=== PATIENT | male | born 1930 | race Caucasian/White ===

== ENCOUNTER 2016-09-20 02:47 | Emergency (ER) | payer MEDICARE ==
[2016-09-20 02:57] VITALS: O2SAT 100
--- NOTE | 2016-09-20 03:00 | ERPHSYRPT ---
- History of Present Illness Time Seen by Provider: 09/20/16 02:53 Source: patient, family Exam Limitations: no limitations Physician History: came to ER with c/o nose bleed for 1 hour. Nose bleed is already stopped when patient arrives in ER. some blood clots in left nostril. patient is taking elliquis for his atrial fibrillation and CHF Timing/Duration: abrupt onset ENT Location: nose (bleed) Prearrival Treatment: no prearrival treatment Associated Symptoms: denies symptoms Allergies/Adverse Reactions: No Known Drug Allergies Allergy (Verified 05/31/15 17:09) Home Medications: Allopurinol 100 mg [Zyloprim 100 mg] 150 mg PO DAILY 06/07/14 [History] Cholecalciferol (Vitamin D3) [Maximum D3] 1 cap PO WEEKLY 06/07/14 [History] Levothyroxine Sodium 75 Mcg [Synthroid 75 Mcg] 75 mcg PO DAILY 06/07/14 [ History] Furosemide 40 mg PO BID 05/31/15 [History] Tamsulosin HCl 0.4 mg [Flomax 0.4 MG] 0.4 mg PO DAILY 05/31/15 [History] Apixaban [Eliquis] 5 mg PO BID 02/10/16 [History] Carvedilol 12.5 mg [Coreg 12.5 mg] 12.5 mg PO BID 02/10/16 [History] Hx Tetanus, Diphtheria Vaccination/Date Given: No Hx Influenza Vaccination/Date Given: Yes Hx Pneumococcal Vaccination/Date Given: No - Review of Systems Constitutional: No Symptoms Eyes: No Symptoms Ears, Nose, & Throat: Epistaxis Respiratory: No Symptoms Cardiac: No Symptoms Abdominal/Gastrointestinal: No Symptoms Genitourinary Symptoms: No Symptoms Musculoskeletal: No Symptoms Skin: No Symptoms - Past Medical History Pertinent Past Medical History: Yes Neurological History: No Pertinent History ENT History: No Pertinent History Cardiac History: Angina, Arrhythmia, Hypertension Respiratory History: CHF, COPD Endocrine Medical History: No Pertinent History Musculoskeletal History: Fractures GI Medical History: No Pertinent History History: Renal Disease Psycho-Social History: No Pertinent History Male Reproductive Disorders: Prostate Problems Other Medical History: fractured left arm, fractured fingers - Past Surgical History Past Surgical History: Yes Neuro Surgical History: No Pertinent History Cardiac: Pacemaker Respiratory: No Pertinent History Gastrointestinal: No Pertinent History Genitourinary: No Pertinent History Musculoskeletal: Orthopedic Surgery Male Surgical History: No Pertinent History Other Surgical History: [place] teeth out, surgery on hand - Social History Smoking Status: Former smoker Exposure to second hand smoke: No Drug Use: none Patient Lives Alone: Yes - Physical Exam General Appearance: no apparent distress Eye Exam: bilateral eye: normal inspection Ear Exam: bilateral ear: auricle normal Nasal Exam: dried blood (left nostril), No active bleeding Throat Exam: normal, pharynx normal Neck Exam: normal inspection Cardiovascular/Respiratory Exam: chest non-tender, normal breath sounds Abdominal Exam: non-tender Neurologic Exam: alert, oriented x 3, cooperative - Course Nursing assessment & vital signs reviewed: Yes - Progress Progress: improved Counseled pt/family regarding: diagnosis, need for follow-up - Departure Time of Disposition: 02:57 Departure Disposition: Home Clinical Impression: Anterior epistaxis Condition: Stable Critical Care Time: No Referrals: CRISTINA VALVERDE MD [Primary Care Provider] - Instructions: Nosebleed Additional Instructions: Donot take morning dose of ellequis , continue rest of the medicines. start elliquis toinght dose. if nose bleed recurs then hold another dose of elliquis too. if bleeding still recur then come back to ER for nasal packing. add water tower for his oxygen.
[2016-09-20 03:42] VITALS: BP 107/68; PULSE 76
== END 2016-09-20 03:43 | disposition home or self-care (01) ==
LOC: ED 02:47
DX: R04.0 Epistaxis (principal); I50.9 Heart failure, unspecified; I48.2 Chronic atrial fibrillation; J44.9 Chronic obstructive pulmonary disease, unspecified; Z79.01 Long term (current) use of anticoagulants
CPT/HCPCS: 99282

== ENCOUNTER 2017-03-07 23:38 | Inpatient (IN) | payer MEDICARE ==
[2017-03-07] MEDS ORDERED: Sodium Chloride 0.9% 1000 ML 1,000 ML IV SCH (23:45)
[2017-03-08 00:01] LABS: Mean Cell Volume 87.5 fl (78-100); Mean Corpuscular Hemoglobin 27.3 pg (26-32); Mean Platelet Volume 10.9 fl (6-9.5); Platelet Count 246 K/mm3 (150-450); Red Blood Count 4.79 M/mm3 (4.1-5.6); Red Cell Distribution Width 19.4 % (11.5-14.0); White Blood Count 10.4 K/mm3 (4.0-10.5)
--- NOTE | 2017-03-08 00:11 | ERPHSYRPT ---
- History of Present Illness Time Seen by Provider: 03/07/17 23:38 Source: patient, family (DAUGHTER) Exam Limitations: no limitations Patient Subjective Stated Complaint: "I was going to the bathroom and fell. i don't think i hit my head, but i passed out. that's why i fell. my right knee is hurting" Triage Nursing Assessment: aox3, breathing unlabored, skin pink warm dry, assist of 1 needed from wc to bed Physician History: ABOUT 20 MINUTES AGO PT FELL IN HIS BEDROOM AFTER A 2 SECOND LOSS OF CONSCIOUSNESS WITH RESULTANT BITEMPORAL HEADACHE AND RIGHT KNEE PAIN. PT HAS HAD LIGHTHEADEDNESS, DIZZINESS AND LEFT LEG WEAKNESS FOR THE PAST WEEK. PT HAS HAD BILATERAL FOOT EDEMA AND HAS BEEN ON HOME OXYGEN FOR YEARS. Allergies/Adverse Reactions: No Known Drug Allergies Allergy (Verified 05/31/15 17:09) Home Medications: Allopurinol 100 mg [Zyloprim 100 mg] 150 mg PO DAILY 06/07/14 [History] Cholecalciferol (Vitamin D3) [Maximum D3] 1 cap PO WEEKLY 06/07/14 [History] Levothyroxine Sodium 75 Mcg [Synthroid 75 Mcg] 75 mcg PO DAILY 06/07/14 [ History] Furosemide 40 mg PO BID 05/31/15 [History] Tamsulosin HCl 0.4 mg [Flomax 0.4 MG] 0.4 mg PO DAILY 05/31/15 [History] Apixaban [Eliquis] 5 mg PO BID 02/10/16 [History] Carvedilol 12.5 mg [Coreg 12.5 mg] 12.5 mg PO BID 02/10/16 [History] Hx Tetanus, Diphtheria Vaccination/Date Given: Yes Hx Influenza Vaccination/Date Given: Yes Hx Pneumococcal Vaccination/Date Given: No - Review of Systems Constitutional: No Fever Respiratory: Dyspnea (CHRONIC) Cardiac: No Chest Pain Abdominal/Gastrointestinal: No Abdominal Pain, No Vomiting Musculoskeletal: Joint Pain (RIGHT KNEE PAIN), Other (FEET EDEMA) Neurological: Dizziness, Focal Weakness (LEFT LEG WEAKNESS FOR 1 WEEK), Headache , Other (LOC) All Other Systems: Reviewed and Negative - Past Medical History Pertinent Past Medical History: Yes Neurological History: No Pertinent History ENT History: No Pertinent History Cardiac History: Angina, Arrhythmia, Hypertension, Other Respiratory History: CHF, COPD Endocrine Medical History: No Pertinent History Musculoskeletal History: Fractures GI Medical History: No Pertinent History History: Renal Disease Psycho-Social History: No Pertinent History Male Reproductive Disorders: Prostate Problems Other Medical History: fractured left arm, fractured fingers ppm 06/2015 for atrial fib leaky valve - Past Surgical History Past Surgical History: Yes Neuro Surgical History: No Pertinent History Cardiac: Pacemaker Respiratory: No Pertinent History Gastrointestinal: No Pertinent History Genitourinary: No Pertinent History Musculoskeletal: Orthopedic Surgery Male Surgical History: No Pertinent History Other Surgical History: [place] teeth out, surgery on hand - Social History Smoking Status: Former smoker Exposure to second hand smoke: No Drug Use: none Patient Lives Alone: Yes - Nursing Vital Signs Nursing Vital Signs: Initial Vital Signs Temperature 97.3 F 03/07/17 23:48 Pulse Rate 86 03/07/17 23:48 Respiratory Rate 22 03/07/17 23:48 Blood Pressure 143/65 03/07/17 23:48 O2 Sat by Pulse Oximetry 96 03/07/17 23:48 Pain Scale Pain Intensity 2 - Physical Exam General Appearance: alert Eye Exam: eyes nml inspection Ears, Nose, Throat Exam: pharynx normal, moist mucous membranes Neck Exam: normal inspection Respiratory Exam: lungs clear Cardiovascular Exam: normal heart sounds Gastrointestinal/Abdomen Exam: soft, normal bowel sounds Back Exam: normal range of motion Extremity Exam: pedal edema (+1 BILATERALLY) Neurologic Exam: alert, cooperative Skin Exam: warm, dry SpO2 Interpretation: normal SpO2: 96 Oxygen Delivery: Nasal Cannula - Course Nursing assessment & vital signs reviewed: Yes EKG Interpreted by Me: RATE (65), NORMAL AXIS, Non-specific ST Changes, Other ( PACEMAKER EKG) - Radiology Exams Chest X-ray Interpretation: Interpreted by me (CM) - CT Exams Head CT Interpretation: Tele-radiologist Report (NO ACUTE INTRACRANIAL FINDINGS.) Ordered Tests: Active Orders 24 hr Category Date Time Status EKG-ER Only STAT Care 03/07/17 23:52 Active IV Insertion STAT Care 03/07/17 23:52 Active Oxygen-ED Only NASAL CANNULA 3 lpm Care 03/07/17 23:52 Active Pulse Oximetry (ED) STAT Care 03/07/17 23:52 Active CHEST 1 VIEW (PORTABLE) Stat Exams 03/07/17 23:51 Taken HEAD WITHOUT CONTRAST [CT] Stat Exams 03/07/17 23:52 Taken AMYLASE Stat Lab 03/07/17 23:55 Completed CBC W DIFF Stat Lab 03/07/17 23:55 Completed CMP Stat Lab 03/07/17 23:55 Completed LIPASE Stat Lab 03/07/17 23:55 Completed MAGNESIUM Stat Lab 03/07/17 23:55 Completed Manual Differential NC Stat Lab 03/07/17 23:55 Completed NT PRO BNP Stat Lab 03/07/17 23:55 Completed TROPONIN Q3H Lab 03/07/17 23:55 Completed TROPONIN Q3H Lab 03/08/17 02:51 Ordered TROPONIN Q3H Lab 03/08/17 05:51 Ordered TROPONIN Q3H Lab 03/08/17 08:51 Ordered TROPONIN Q3H Lab 03/08/17 11:51 Ordered UA W/RFX UR CULTURE Stat Lab 03/07/17 23:51 Completed Urine Triage Profile Stat Lab 03/07/17 23:51 Completed Transfer Order Routine Transfer 03/08/17 Ordered Medication Summary Generic Name Dose Route Start Last Admin Trade Name Dominga PRN Reason Stop Dose Admin Sodium Chloride 1,000 mls @ 100 mls/hr 03/07/17 23:45 03/08/17 00:28 Sodium Chloride 0.9% 1000 Ml IV 04/06/17 23:44 100 mls/hr .Q10H KHUSHBU Administration Lab/Rad Data: Laboratory Result Diagrams 03/07/17 23:55 03/07/17 23:55 Laboratory Results 03/08/17 03/08/17 03/07/17 Range/Units 01:20 01:20 23:55 WBC (4.0-10.5) K/mm3 RBC (4.1-5.6) M/mm3 Hgb (12.5-18.0) gm/dl Hct (42-50) % MCV (78-100) fl MCH (26-32) pg MCHC (32-36) g/dl RDW (11.5-14.0) % Plt Count (150-450) K/mm3 MPV (6-9.5) fl Segmented Neutrophils (36.-66.) % Lymphocytes (Manual) (24-44) % Monocytes (Manual) (0.0-12.0) % Eosinophils (Manual) (0.00-3.0) % Differential Comment Platelet Estimate (NORMAL) Sodium (136-145) mEq/L Potassium (3.5-5.1) mEq/L Chloride (98-107) mEq/L Carbon Dioxide (21-32) mEq/L Anion Gap (5-15) MEQ/L BUN (9-20) mg/dL Creatinine (0.55-1.30) mg/dl Estimated GFR ML/MIN Glucose (70-110) MG/DL Calcium (8.5-10.1) mg/dL Magnesium (1.8-2.4) mg/dL Total Bilirubin (0.2-1.0) mg/dL AST (15-37) U/L ALT (12-78) U/L Alkaline Phosphatase (46-116) U/L Troponin I < 0.017 (0.000-0.056) ng/ml NT-Pro-B Natriuret Pep (0-450) pg/ml Serum Total Protein (6.4-8.2) gm/dL Albumin (3.4-5.0) g/dL Amylase (25-115) U/L Lipase (73-393) U/L Ur Collection Type CLEAN CATCH Urine Color YELLOW (YELLOW) Urine Appearance CLEAR (CLEAR) Urine pH 5.0 (5-6) Ur Specific [place] 1.015 (1.005-1.025) Urine Protein NEGATIVE (Negative) Urine Ketones NEGATIVE (NEGATIVE) Urine Blood NEGATIVE (0-5) Rikki/ul Urine Nitrite NEGATIVE (NEGATIVE) Urine Bilirubin NEGATIVE (NEGATIVE) Urine Urobilinogen 1 (0-1) mg/dL Ur Leukocyte Esterase NEGATIVE (NEGATIVE) Urine Glucose NEGATIVE (NEGATIVE) mg/dL Urine Opiates Level NEG. (NEGATIVE) Ur Methadone NEG. (NEGATIVE) Urine Barbiturates NEG. (NEGATIVE) Ur Phencyclidine (PCP) NEG. (NEGATIVE) Urine Amphetamine NEG. (NEGATIVE) U Benzodiazepine Level NEG. (NEGATIVE) Urine Cocaine NEG. (NEGATIVE) Urine Marijuana (THC) NEG. (NEGATIVE) Specimen Received 03/08/17:0120 03/07/17 03/07/17 Range/Units 23:55 23:55 WBC 10.4 (4.0-10.5) K/mm3 RBC 4.79 (4.1-5.6) M/mm3 Hgb 13.1 (12.5-18.0) gm/dl Hct 41.9 L (42-50) % MCV 87.5 (78-100) fl MCH 27.3 (26-32) pg MCHC 31.3 L (32-36) g/dl RDW 19.4 H (11.5-14.0) % Plt Count 246 (150-450) K/mm3 MPV 10.9 H (6-9.5) fl Segmented Neutrophils 80 H (36.-66.) % Lymphocytes (Manual) 13 L (24-44) % Monocytes (Manual) 6 (0.0-12.0) % Eosinophils (Manual) 1 (0.00-3.0) % Differential Comment NORMAL Platelet Estimate NORMAL (NORMAL) Sodium 143 (136-145) mEq/L Potassium 4.6 (3.5-5.1) mEq/L Chloride 105 (98-107) mEq/L Carbon Dioxide 26.9 (21-32) mEq/L Anion Gap 16.0 H (5-15) MEQ/L BUN 38 H (9-20) mg/dL Creatinine 2.16 H (0.55-1.30) mg/dl Estimated GFR 31 ML/MIN Glucose 155 H (70-110) MG/DL Calcium 9.4 (8.5-10.1) mg/dL Magnesium 2.2 (1.8-2.4) mg/dL Total Bilirubin 0.60 (0.2-1.0) mg/dL AST 16 (15-37) U/L ALT 13 (12-78) U/L Alkaline Phosphatase 131 H (46-116) U/L Troponin I (0.000-0.056) ng/ml NT-Pro-B Natriuret Pep 5406 H (0-450) pg/ml Serum Total Protein 7.2 (6.4-8.2) gm/dL Albumin 3.3 L (3.4-5.0) g/dL Amylase 60 (25-115) U/L Lipase 199 (73-393) U/L Ur Collection Type Urine Color (YELLOW) Urine Appearance (CLEAR) Urine pH (5-6) Ur Specific [place] (1.005-1.025) Urine Protein (Negative) Urine Ketones (NEGATIVE) Urine Blood (0-5) Rikki/ul Urine Nitrite (NEGATIVE) Urine Bilirubin (NEGATIVE) Urine Urobilinogen (0-1) mg/dL Ur Leukocyte Esterase (NEGATIVE) Urine Glucose (NEGATIVE) mg/dL Urine Opiates Level (NEGATIVE) Ur Methadone (NEGATIVE) Urine Barbiturates (NEGATIVE) Ur Phencyclidine (PCP) (NEGATIVE) Urine Amphetamine (NEGATIVE) U Benzodiazepine Level (NEGATIVE) Urine Cocaine (NEGATIVE) Urine Marijuana (THC) (NEGATIVE) Specimen Received - Progress Discussed with : Chan (OBS - [id number]) - Departure Time of Disposition: 01:40 Departure Disposition: Observation Clinical Impression: SYNCOPE, RIGHT KNEE CONTUSION, CKD, HTN, COPD, ARRHYTHMIA, CHF Condition: Stable Critical Care Time: No Referrals: CRISTINA VALVERDE MD [Primary Care Provider] -
[2017-03-08] MEDS ORDERED: Sodium Chloride 0.9% 1000 ML 1,000 ML ONE (00:16)
[2017-03-08 00:30] LABS: ALBUMIN 3.3 g/dL (3.4-5.0); BILIRUBIN,TOTAL 0.6 mg/dL (0.2-1.0); Carbon Dioxide 26.9 mEq/L (21-32); MAGNESIUM 2.2 mg/dL (1.8-2.4); Potassium 4.6 mEq/L (3.5-5.1); Total Protein 7.2 gm/dL (6.4-8.2)
[2017-03-08 01:11] LABS: Eosinophil 1 % (0.00-3.0); Platelet Estimate NORMAL (NORMAL); Total Cells Counted 100
[2017-03-08 01:26] LABS: ADD URINE CULTURE? NO (NO); Bilirubin NEGATIVE (NEGATIVE); Blood NEGATIVE Ery/ul (0-5); COMPLETE URINE MICROSCOPIC? NO; Collection Type CLEAN CATCH; Glucose NEGATIVE (NEGATIVE); Leukocyte Esterase NEGATIVE (NEGATIVE)
[2017-03-08] MEDS ORDERED: Phenergan 25 MG INJ IV PRN (02:09)
[2017-03-08] MEDS ORDERED: Sodium Chloride 0.9% 1000 ML 1,000 ML IV SCH (02:09)
[2017-03-08] MEDS ORDERED: TYLENOL 325 MG PO PRN (02:09)
[2017-03-08] MEDS: DUONEB 0.5-3 MG/3 ml Neb IH SCH ×5 (02:51→18:45)
[2017-03-08 05:45] LABS: BASOPHIL % 0.2 % (0.0-0.4); Eosinophil % 0.5 % (0.00-5.0); Granulocytes % 80.1 % (36.0-66.0); Lymphocytes % 13.1 % (24.0-44.0); Mean Cell Volume 87.1 fl (78-100); Mean Corpuscular Hemoglobin 27.4 pg (26-32); Mean Platelet Volume 11.2 fl (6-9.5); Monocytes % 6.1 % (0.0-12.0); Platelet Count 226 K/mm3 (150-450); Red Blood Count 4.57 M/mm3 (4.1-5.6); White Blood Count 9.3 K/mm3 (4.0-10.5)
[2017-03-08 06:10] LABS: ALBUMIN 3.1 g/dL (3.4-5.0); ALKALINE PHOSPHATASE 116 U/L (46-116); ANION GAP 12.1 MEQ/L (5-15); BLOOD UREA NITROGEN 35 mg/dL (9-20); CHLORIDE 107 mEq/L (98-107); Carbon Dioxide 27.6 mEq/L (21-32); Glucose 136 MG/DL (70-110); Potassium 3.9 mEq/L (3.5-5.1); SGOT/AST 22 U/L (15-37); SGPT/ALT 11 U/L (12-78); SODIUM 143 mEq/L (136-145); Total Protein 6.8 gm/dL (6.4-8.2)
[2017-03-08 06:16] LABS: TROPONIN < 0.017 ng/ml (0.000-0.056)
--- NOTE | 2017-03-08 07:41 | PCM.HP ---
History of Present Illness - Chief Complaint Chief Complaint: Patient fell at home, c/o dizziness History of Present Illness: is a 86 year old male. - Review of Systems Constitutional: No Fever, No Chills Eyes: No Symptoms Ears, Nose, & Throat: No Symptoms Respiratory: No Cough, No Short Of Breath Cardiac: No Chest Pain, No Edema, No Syncope Abdominal/Gastrointestinal: No Abdominal Pain, No Nausea, No Vomiting, No Diarrhea Genitourinary Symptoms: No Dysuria Musculoskeletal: No Back Pain, No Neck Pain Skin: No Rash Neurological: No Dizziness, No Focal Weakness, No Sensory Changes Psychological: No Symptoms Endocrine: No Symptoms Hematologic/Lymphatic: No Symptoms Immunological/Allergic: No Symptoms Medications & Allergies Home Medications: Home Medication List Allopurinol 100 mg [Zyloprim 100 mg] 150 mg PO DAILY 06/07/14 [History Confirmed 03/08/17] Cholecalciferol (Vitamin D3) [Maximum D3] 1 cap PO WEEKLY 06/07/14 [History Confirmed 03/08/17] Levothyroxine Sodium 75 Mcg [Synthroid 75 Mcg] 75 mcg PO DAILY 06/07/14 [ History Confirmed 03/08/17] Furosemide 40 mg PO BID 05/31/15 [History Confirmed 03/08/17] Tamsulosin HCl 0.4 mg [Flomax 0.4 MG] 0.4 mg PO DAILY 05/31/15 [History Confirmed 03/08/17] Carvedilol 12.5 mg [Coreg 12.5 mg] 12.5 mg PO BID 02/10/16 [History Confirmed 03/08/17] Aspirin [Aspir-Low] 81 mg PO DAILY 03/08/17 [History Confirmed 03/08/17] Allergies/Adverse Reactions: Allergies Allergy/AdvReac Type Severity Reaction Status Date / Time No Known Drug Allergies Allergy Verified 05/31/15 17:09 - Past Medical History Past Medical History: Yes Neurological History: No Pertinent History ENT History: No Pertinent History Cardiac History: Angina, Arrhythmia, Hypertension, Other Respiratory History: CHF, COPD Endocrine Medical History: Hypothyroidism Musculoskelatal History: Arthritis, Fractures GI Medical History: No Pertinent History History: Renal Disease Pyscho-Social History: No Pertinent History Male Reproductive Disorders: Prostate Problems Comment: fractured left arm, fractured fingers ppm 06/2015 for atrial fib leaky valve - Past Surgical History Past Surgical History: Yes Neuro Surgical History: No Pertinent History Cardiac History: Pacemaker, Other Respiratory Surgery: No Pertinent History GI Surgical History: No Pertinent History Genitourinary Surgical Hx: No Pertinent History Musculskeletal Surgical Hx: Orthopedic Surgery Male Surgical History: No Pertinent History Other Surgical History: [place] teeth out, surgery on hand - Social History Smoking Status: Former smoker Exposure to second hand smoke: No Alcohol: None Drug Use: none - Physical Exam Vital Signs: Vital Signs - 24 hr Temp Pulse Resp BP BP Pulse Ox 03/08/17 07:23 97.8 F 82 20 152/66 94 L 03/08/17 07:15 64 18 95 03/08/17 04:00 98 F 74 18 160/65 93 L 03/08/17 02:52 68 22 97 03/08/17 02:43 98.2 F 71 24 154/79 93 L 03/08/17 02:20 91 L 03/08/17 01:40 96 03/08/17 01:31 69 24 126/64 95 03/08/17 00:33 79 24 169/91 95 03/07/17 23:54 96 03/07/17 23:48 97.3 F 86 22 143/65 96 Oxygen-Last 24 hours O2 Percentage 3 Liters = 32% O2 Percentage 3 Liters = 32% O2 Percentage 3 Liters = 32% O2 Percentage 3 Liters = 32% O2 Percentage 3 Liters = 32% O2 Percentage 2 Liters = 28% O2 Percentage 2 Liters = 28% General Appearance: no apparent distress, alert Neurologic Exam: alert, oriented x 3, cooperative, normal mood/affect, nml cerebellar function, nml station & gait, sensation nml, No motor deficits Eye Exam: PERRL/EOMI, eyes nml inspection Ears, Nose, Throat Exam: normal ENT inspection, TMs normal, pharynx normal, moist mucous membranes Neck Exam: normal inspection, non-tender, supple, full range of motion Respiratory Exam: normal breath sounds, lungs clear, No respiratory distress Cardiovascular Exam: regular rate/rhythm, normal heart sounds, normal peripheral pulses Gastrointestinal/Abdomen Exam: soft, normal bowel sounds, No tenderness, No mass Back Exam: normal inspection, normal range of motion, No CVA tenderness, No vertebral tenderness Extremity Exam: normal inspection, normal range of motion, pelvis stable Skin Exam: normal color, warm, dry, No rash Lymphatic Exam: No adenopathy Results - Labs Lab/Micro Results: Lab Results-Last 24 Hours 03/08/17 03/08/17 03/08/17 Range/Units 03:10 05:17 05:17 WBC 9.3 (4.0-10.5) K/mm3 RBC 4.57 (4.1-5.6) M/mm3 Hgb 12.5 (12.5-18.0) gm/dl Hct 39.8 L (42-50) % MCV 87.1 (78-100) fl MCH 27.4 (26-32) pg MCHC 31.4 L (32-36) g/dl RDW 19.0 H (11.5-14.0) % Plt Count 226 (150-450) K/mm3 MPV 11.2 H (6-9.5) fl Gran % 80.1 H (36.0-66.0) % Lymphocytes % 13.1 L (24.0-44.0) % Monocytes % 6.1 (0.0-12.0) % Eosinophils % 0.5 (0.00-5.0) % Basophils % 0.2 (0.0-0.4) % Basophils # 0.02 (0-0.4) Sodium 143 (136-145) mEq/L Potassium 3.9 (3.5-5.1) mEq/L Chloride 107 (98-107) mEq/L Carbon Dioxide 27.6 (21-32) mEq/L Anion Gap 12.1 (5-15) MEQ/L BUN 35 H (9-20) mg/dL Creatinine 1.98 H (0.55-1.30) mg/dl Estimated GFR 34 ML/MIN Glucose 136 H (70-110) MG/DL Calcium 9.3 (8.5-10.1) mg/dL Total Bilirubin 0.70 (0.2-1.0) mg/dL AST 22 (15-37) U/L ALT 11 L (12-78) U/L Alkaline Phosphatase 116 (46-116) U/L Troponin I < 0.017 < 0.017 (0.000-0.056) ng/ml Serum Total Protein 6.8 (6.4-8.2) gm/dL Albumin 3.1 L (3.4-5.0) g/dL - Other Procedures and Tests Respiratory Therapy 03/08/17 03:15 Respiratory Nebulizer Q4H Assessment/Plan (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
[2017-03-08] MEDS ORDERED: CHOLECALCIFEROL PO SCH (08:30)
[2017-03-08] MEDS: COREG 12.5 MG PO SCH ×2 (09:29→21:42)
[2017-03-08] MEDS: ECOTRIN 81 MG PO SCH (09:29)
[2017-03-08] MEDS: Flomax 0.4 MG PO SCH (09:29)
[2017-03-08] MEDS: SYNTHROID 75 MCG PO SCH (09:30)
[2017-03-08] MEDS: Lasix 40 MG PO SCH ×2 (09:30→16:46)
[2017-03-08] MEDS: ZYLOPRIM 300 MG PO SCH (09:32)
--- NOTE | 2017-03-08 09:53 | XRAY ---
Indication: Syncopal episode. Headache. Comparison: February 10, 2016. Portable apical lordotic chest underinflated today again with cardiomegaly and left-sided single lead pacemaker. There is now right base subsegmental atelectasis. Remaining lungs clear. Bony thorax intact again with osteopenia and degenerative changes. Impression: Stable cardiomegaly. Right base atelectasis.
--- NOTE | 2017-03-08 09:57 | XRAY ---
Indication: Syncopal episode. Headache. History of hypertension, arrhythmia, and renal disease. Multiple contiguous axial images obtained through the head without contrast. Comparison: March 19, 2007. Again age-appropriate global atrophy, minimal periventricular degenerative micro-ischemia, and remote left caudate head lacunar infarct. No acute intracranial hemorrhage, abnormal extra-axial fluid collection, or mass effect. Fourth ventricle is midline without hydrocephalus. Bony calvarium intact. Again there is chronic opacification of the right mastoid air cells. Remaining visualized paranasal sinuses are clear. Impression: Stable nonacute senile brain with remote left caudate head lacunar infarct. Stable right mastoid air cells opacification presumed inflammatory. Comment: Preliminary interpretation was made by [facility]. Right mastoid air cell opacification not reported and critical. CTDI 68.65
[2017-03-08] MEDS ORDERED: VITAMIN D PO SCH (10:00)
[2017-03-09] MEDS: DUONEB 0.5-3 MG/3 ml Neb IH SCH ×2 (01:10→04:14)
[2017-03-09] MEDS: COREG 12.5 MG PO SCH ×2 (10:05→21:12)
[2017-03-09] MEDS: ECOTRIN 81 MG PO SCH (10:06)
[2017-03-09] MEDS: Flomax 0.4 MG PO SCH (10:06)
[2017-03-09] MEDS: Lasix 40 MG PO SCH (10:06)
[2017-03-09] MEDS: ZYLOPRIM 300 MG PO SCH (10:06)
[2017-03-09] MEDS: SYNTHROID 75 MCG PO SCH (10:06)
--- NOTE | 2017-03-09 12:30 | PCM.NOTE ---
Date and Time: 03/09/17 1230 Subjective Assessment: doing better - Review of Systems Constitutional: No Fever, No Chills Eyes: No Symptoms Ears, Nose, & Throat: No Symptoms Respiratory: No Cough, No Short Of Breath Cardiac: No Chest Pain, No Edema, No Syncope Abdominal/Gastrointestinal: No Abdominal Pain, No Nausea, No Vomiting, No Diarrhea Genitourinary Symptoms: No Dysuria Musculoskeletal: No Back Pain, No Neck Pain Skin: No Rash Neurological: No Dizziness, No Focal Weakness, No Sensory Changes Psychological: No Symptoms Endocrine: No Symptoms Hematologic/Lymphatic: No Symptoms Immunological/Allergic: No Symptoms Objective Exam General Appearance: no apparent distress, alert Neurologic Exam: alert, oriented x 3, cooperative, normal mood/affect, nml cerebellar function, sensation nml, No motor deficits Skin Exam: normal color, warm, dry Eye Exam: PERRL, EOMI, eyes nml inspection Ears, Nose, Throat Exam: normal ENT inspection, pharynx normal, moist mucous membranes Neck Exam: normal inspection, non-tender, supple, full range of motion Respiratory Exam: normal breath sounds, lungs clear, No respiratory distress Cardiovascular Exam: regular rate/rhythm, normal heart sounds Gastrointestinal/Abdomen Exam: soft, No tenderness, No mass Extremity Exam: normal inspection, normal range of motion Back Exam: normal inspection, normal range of motion, No CVA tenderness, No vertebral tenderness Male Genitalia Exam: deferred Rectal Exam: deferred OBJECTIVE DATA Vital Signs: Vital Signs - 24 hr Temp Pulse Resp BP Pulse Ox 03/09/17 11:00 98.3 F 83 20 163/76 95 03/09/17 07:34 97.6 F 75 18 140/68 96 03/09/17 05:02 98.2 F 75 18 131/60 96 03/09/17 04:20 71 19 97 03/09/17 04:12 66 17 96 03/09/17 04:00 18 03/09/17 00:00 98.4 F 75 28 H 140/65 92 L 03/08/17 20:15 98.3 F 71 24 179/76 95 03/08/17 20:00 24 03/08/17 18:49 75 25 H 98 03/08/17 17:02 97.8 F 90 22 95 03/08/17 16:00 18 03/08/17 15:00 63 18 96 03/08/17 13:02 97.6 F 94 H 20 142/80 97 Oxygen-Last 24 hours O2 Percentage 5 Liters = 40% O2 Percentage 5 Liters = 40% O2 Percentage 5 Liters = 40% O2 Percentage 5 Liters = 40% O2 Percentage 4 Liters = 36% O2 Percentage 4 Liters = 36% O2 Percentage 3 Liters = 32% O2 Percentage 3 Liters = 32% Pain Assessment - Last Documented Pain Intensity 0 Pain Scale Used 0-10 Pain Scale Intake and Output: Intake & Output 03/07/17 03/08/17 03/09/17 03/10/17 11:59 11:59 11:59 11:59 Intake Total 876 1682 Output Total 150 1000 Balance 726 682 Weight 93.304 kg 95.028 kg Lab Results: Lab Results-Last 24 Hours 03/08/17 Range/Units 12:27 Troponin I < 0.017 (0.000-0.056) ng/ml Radiology Exams: Radiology Procedures Category Date Time Status ECHO W/2D AND DOPPLER [US] Routine Exams 03/09/17 08:00 Taken Multi-Disciplinary Progress Notes: Multi-Disciplinary Progress Notes 03/09/17 09:52 Case Management Note by Roxy Delarosa PAPERS DISCUSSED WITH PT, SIGNED AND COPY TO PATIENT AND COPY TO CHART. Initialized on 03/09/17 09:52 - END OF NOTE 03/08/17 16:07 Case Management Note by Roxy Delarosa DAUGHTER AND LAY CAREGIVER, MELINA RETURNED CALL. SHE STATES THAT SHE LIVES 2 DO[address] FROM HER FATHER, EVEN THOUGH HE DOES LIVE BY HIMSELF, AND SHE CHECKS ON HIM DAILY. SHE FEELS THAT IT WOULD BE BENEFICIAL TO HER FATHER IF HE WERE TO HAVE PT AND HHC, WITH AIDS COMING IN AT LEAST THREE TIMES A WEEK TO HELP WITH BATHING AND DRESSING. SHE STATES THAT SHE WORKS AT [employer], CAN BE REACHED THERE TOMORROW DURING THE DAYS OR HER CELL PHONE AND THAT IF HE IS DISCHARGED TOMORROW IT WOULD BE AFTER 1600 WHEN SHE COULD PICK HIM UP. SHE IS HAPPY TO HAVE [facility] FOR HER FATHER'S CARE AT HOME. WILL CONTINUE TO MONITOR FOR ALL D /C NEEDS. Initialized on 03/08/17 16:07 - END OF NOTE Assessment/Plan (1) Hypertensive heart and chronic kidney disease with heart failure Current Visit: Yes Status: Chronic Code(s): I13.0 - HYP HRT & CHR KDNY DIS W HRT FAIL AND STG 1-4/UNSP CHR KDNY; I50.9 - HEART FAILURE, UNSPECIFIED; N18.9 - CHRONIC KIDNEY DISEASE, UNSPECIFIED (2) Nocturnal hypoxemia Current Visit: Yes Status: Acute Code(s): G47.34 - IDIO SLEEP RELATED NONOBSTRUCTIVE ALVEOLAR HYPOVENTILATION (3) Physical debility Current Visit: Yes Status: Acute Code(s): R53.81 - OTHER MALAISE (4) Physical deconditioning Current Visit: Yes Status: Acute Code(s): R53.81 - OTHER MALAISE
--- NOTE | 2017-03-09 13:36 | CONS ---
CONSULT DATE: 03/09/2017 REASON FOR CONSULT: Evaluation of increased BUN and creatinine. HISTORY: Alok Mathew is a very pleasant 86 year-old gentleman who has known history of multiple medical problems including chronic kidney disease. The patient also has underlying congestive heart failure. The patient states that he has been having difficulty in breathing for several weeks. He was going to the bathroom and fell down and hit his head. He also possibly passed out. The duration of passing out is not entirely clear about 20 minutes. The patient had headache post-possible syncope and right knee pain. He came to the emergency room. He was admitted for syncope. The patient has chronic respiratory failure and has been on oxygen. Baseline creatinine is not entirely clear but is known case of chronic kidney disease. He states that he has seen me in the past. The patient was on Lasix 40 mg b.i.d. During the course of hospitalization creatinine was noted to be around 1.98 to 2.1 mg% and renal consultation was called. REVIEW OF SYSTEMS: The patient denies any voiding difficulty at this time. Leg swelling is improving but present. Shortness of breath is present. Blood pressure has been high. No vomiting or diarrhea. No bleeding from any orifices. CT scan of head was normal. No dye exposure. No dysuria. No hematuria. No urinary tract infection. No kidney stones. Rest of the review of systems was negative. All systems were reviewed and pertinent mentioned here. PAST MEDICAL HISTORY: Gout, no recent flare ups. Vitamin D deficiency. Hypothyroidism. Congestive heart failure most likely systolic. Benign prostatic hypertrophy. Possible atrial fibrillation on Eliquis. Hypertension. Chronic respiratory failure on home oxygen. Chronic obstructive pulmonary disease. History of angina. History of arrhythmia. PAST SURGICAL HISTORY: [place] tooth surgery. Surgery on the hand. Pacemaker implantation. HOME MEDICATIONS: Allopurinol, vitamin D, levothyroxine, Furosemide, Tamsulosin, Eliquis, carvedilol. Details of those were noted. ALLERGIES: NKDA. SOCIAL HISTORY: Former smoker. No alcohol abuse. No drug abuse. He lives alone. FAMILY HISTORY: No history of renal problems in the family. PHYSICAL EXAMINATION: Reveals a gentleman who is upright in bed in mild respiratory distress on 5 liters nasal cannula. Blood pressure 140/68, pulse rate 75/minute, respiratory rate 18 to 20/minute somewhat labored breathing. HEENT: Normocephalic, atraumatic, slightly pale conjunctivae, nonicteric sclera. NECK: Supple. JVD is present. CHEST: Decreased basilar breath sounds, occasional rales. CVS: S1, S2 normal. No rub or gallop. ABDOMEN: Soft, nontender. No organomegaly. EXTREMITIES: No cyanosis, clubbing. +2 edema bilaterally. SKIN: Diffuse rash. Skin turgor normal. MUSCULOSKELETAL: No acute joint swelling, redness, nontender. NEUROLOGIC: The patient is alert, awake, oriented x3. LAB DATA AND TESTS: Labs were reviewed. Creatinine was 1.98. Glomerular filtration rate 34 ml/minute. Troponins were normal. Hemoglobin was 12.5. UA is not available. CT scan was reviewed. ASSESSMENT: 1) ACUTE KIDNEY INJURY ON CHRONIC KIDNEY DISEASE STAGE III VERSUS ON CHRONIC. If transient ischemic attack is present etiology would be related to cardiorenal decompensation/cardiorenal syndrome. I will continue diuretics, change to IV diuretics as long as he is in the hospital. He does have signs fluid overload. We will decrease IV fluids to 10 cc/hour. Monitor electrolytes closely. The patient definitely has underlying chronic kidney disease. Etiology would be related to atherosclerotic vascular disease with multiple episodes of cardiorenal syndrome, hypertension. We will monitor UPCR (urine protein-creatinine ratio). We will get baseline ultrasonogram of kidneys. We will also rule out any obstructive uropathy, monitor PSA levels. Given his age we will send for renal protein electrophoresis to rule out any paraproteinemia. I will avoid any nonsteroidals at this time. 2) ACUTE ON CHRONIC DECOMPENSATED CONGESTIVE HEART FAILURE: We will change to IV Lasix 40 mg b.i.d. We will also add hydrochlorothiazide. We will put him on 1500 cc fluid restriction. Decrease fluid to 10 cc/hour. 3) HYPERTENSION UNCONTROLLED: Start hydrochlorothiazide 25 mg daily. We will also add hydralazine 10 mg t.i.d. which will help with shortness of breath. We recommend 2 gm salt restricted diet. 4) SYNCOPE: He needs pacemaker interrogation. Cardiology on the case. 5) BENIGN PROSTATIC HYPERTROPHY: He states is voiding well, monitor PSA level; rule out obstructive uropathy. 6) HYPOTHYROIDISM: Continue with Synthroid. 7) GOUT: No flare up. Continue Allopurinol 100 mg daily. I concur with the present medications.
[2017-03-09] MEDS: Apresoline 25 MG TABLET PO SCH ×2 (15:03→21:10)
[2017-03-09] MEDS: Sodium Chloride 0.9% 500 ML 500 ML IV SCH (15:03)
[2017-03-09] MEDS: Lasix 40 MG/4 ML IV SCH (15:04)
[2017-03-09 16:23] LABS: Bilirubin NEGATIVE (NEGATIVE); COMPLETE URINE MICROSCOPIC? YES; Collection Type VOID; Glucose NEGATIVE (NEGATIVE); Leukocyte Esterase NEGATIVE (NEGATIVE)
[2017-03-09 16:32] LABS: Bacteria RARE /HPF (NEGATIVE); Epithelial Cells RARE /HPF (FEW); WBC 0-2 /HPF (0-5)
[2017-03-10] MEDS: DUONEB 0.5-3 MG/3 ml Neb IH PRN (04:40)
[2017-03-10 05:30] LABS: Mean Cell Volume 87.9 fl (78-100); Mean Platelet Volume 11.4 fl (6-9.5); Platelet Count 221 K/mm3 (150-450); Red Blood Count 4.46 M/mm3 (4.1-5.6); Red Cell Distribution Width 18.9 % (11.5-14.0); White Blood Count 7.6 K/mm3 (4.0-10.5)
[2017-03-10 05:35] LABS: Mean Corpuscular Hemoglobin 27.3 pg (26-32)
[2017-03-10 05:49] LABS: ALBUMIN 2.9 g/dL (3.4-5.0); ANION GAP 12.5 MEQ/L (5-15); BILIRUBIN,TOTAL 0.9 mg/dL (0.2-1.0); Carbon Dioxide 27.1 mEq/L (21-32); Potassium 3.8 mEq/L (3.5-5.1); Total Protein 6.8 gm/dL (6.4-8.2)
--- NOTE | 2017-03-10 08:29 | PCM.NOTE ---
Date and Time: 03/10/17828 Subjective Assessment: doing better - Review of Systems Constitutional: No Fever, No Chills Eyes: No Symptoms Ears, Nose, & Throat: No Symptoms Respiratory: No Cough, No Short Of Breath Cardiac: No Chest Pain, No Edema, No Syncope Abdominal/Gastrointestinal: No Abdominal Pain, No Nausea, No Vomiting, No Diarrhea Genitourinary Symptoms: No Dysuria Musculoskeletal: No Back Pain, No Neck Pain Skin: No Rash Neurological: No Dizziness, No Focal Weakness, No Sensory Changes Psychological: No Symptoms Endocrine: No Symptoms Hematologic/Lymphatic: No Symptoms Immunological/Allergic: No Symptoms Objective Exam General Appearance: no apparent distress, alert Neurologic Exam: alert, oriented x 3, cooperative, normal mood/affect, nml cerebellar function, sensation nml, No motor deficits Skin Exam: normal color, warm, dry Eye Exam: PERRL, EOMI, eyes nml inspection Ears, Nose, Throat Exam: normal ENT inspection, pharynx normal, moist mucous membranes Neck Exam: normal inspection, non-tender, supple, full range of motion Respiratory Exam: normal breath sounds, lungs clear, No respiratory distress Cardiovascular Exam: regular rate/rhythm, normal heart sounds Gastrointestinal/Abdomen Exam: soft, No tenderness, No mass Extremity Exam: normal inspection, normal range of motion Back Exam: normal inspection, normal range of motion, No CVA tenderness, No vertebral tenderness Male Genitalia Exam: deferred Rectal Exam: deferred OBJECTIVE DATA Vital Signs: Vital Signs - 24 hr Temp Pulse Resp BP BP Pulse Ox 03/10/17 07:37 97.6 F 71 18 148/70 95 03/10/17 07:14 76 20 94 L 03/10/17 04:45 75 26 H 97 03/10/17 04:10 97.9 F 65 26 H 155/71 94 L 03/10/17 00:00 26 H 03/09/17 23:00 98.1 F 63 26 H 137/62 133/91 97 03/09/17 20:36 66 16 97 03/09/17 20:00 16 03/09/17 19:00 97.6 F 77 16 165/74 133/91 95 03/09/17 15:00 97.8 F 74 22 165/74 94 L 03/09/17 11:00 98.3 F 83 20 163/76 95 Oxygen-Last 24 hours O2 Percentage 5 Liters = 40% O2 Percentage 4 Liters = 36% O2 Percentage 5 Liters = 40% O2 Percentage 5 Liters = 40% O2 Percentage 5 Liters = 40% Pain Assessment - Last Documented Pain Intensity 0 Pain Scale Used 0-10 Pain Scale Intake and Output: Intake & Output 03/07/17 03/08/17 03/09/17 03/10/17 11:59 11:59 11:59 11:59 Intake Total 360 1682 100 Output Total 150 1000 400 Balance 210 682 -300 Weight 95.028 kg 93.213 kg Lab Results: Lab Results-Last 24 Hours 03/09/17 03/09/17 03/10/17 Range/Units 15:35 15:35 05:05 WBC 7.6 (4.0-10.5) K/mm3 RBC 4.46 (4.1-5.6) M/mm3 Hgb 12.2 L (12.5-18.0) gm/dl Hct 39.2 L (42-50) % MCV 87.9 (78-100) fl MCH 27.3 (26-32) pg MCHC 31.1 L (32-36) g/dl RDW 18.9 H (11.5-14.0) % Plt Count 221 (150-450) K/mm3 MPV 11.4 H (6-9.5) fl Sodium (136-145) mEq/L Potassium (3.5-5.1) mEq/L Chloride (98-107) mEq/L Carbon Dioxide (21-32) mEq/L Anion Gap (5-15) MEQ/L BUN (9-20) mg/dL Creatinine (0.55-1.30) mg/dl Estimated GFR ML/MIN Glucose (70-110) MG/DL Calcium (8.5-10.1) mg/dL Magnesium (1.8-2.4) mg/dL Total Bilirubin (0.2-1.0) mg/dL AST (15-37) U/L ALT (12-78) U/L Alkaline Phosphatase (46-116) U/L Serum Total Protein (6.4-8.2) gm/dL Albumin (3.4-5.0) g/dL Ur Collection Type VOID Urine Color YELLOW (YELLOW) Urine Appearance CLEAR (CLEAR) Urine pH 5.0 (5-6) Ur Specific [place] 1.015 (1.005-1.025) Urine Protein 50 (Negative) Urine Ketones NEGATIVE (NEGATIVE) Urine Blood 5-10 (0-5) Rikki/ul Urine Nitrite NEGATIVE (NEGATIVE) Urine Bilirubin NEGATIVE (NEGATIVE) Urine Urobilinogen 1 (0-1) mg/dL Ur Leukocyte Esterase NEGATIVE (NEGATIVE) Urine Microscopic RBC 2-5 (0-2) /HPF Urine Microscopic WBC 0-2 (0-5) /HPF Ur Epithelial Cells RARE (FEW) /HPF Urine Bacteria RARE (NEGATIVE) /HPF Ur Random Creatinine 60.48 (30-125) MG/DL U Random Total Protein 27.1 mg/dL Urine Glucose NEGATIVE (NEGATIVE) mg/dL Specimen Received 03/09/17 1545 03/10/17 03/10/17 Range/Units 05:05 05:05 WBC (4.0-10.5) K/mm3 RBC (4.1-5.6) M/mm3 Hgb (12.5-18.0) gm/dl Hct (42-50) % MCV (78-100) fl MCH (26-32) pg MCHC (32-36) g/dl RDW (11.5-14.0) % Plt Count (150-450) K/mm3 MPV (6-9.5) fl Sodium 144 (136-145) mEq/L Potassium 3.8 (3.5-5.1) mEq/L Chloride 108 H (98-107) mEq/L Carbon Dioxide 27.1 (21-32) mEq/L Anion Gap 12.5 (5-15) MEQ/L BUN 29 H (9-20) mg/dL Creatinine 1.61 H (0.55-1.30) mg/dl Estimated GFR 43 ML/MIN Glucose 99 (70-110) MG/DL Calcium 9.1 (8.5-10.1) mg/dL Magnesium 2.2 (1.8-2.4) mg/dL Total Bilirubin 0.90 (0.2-1.0) mg/dL AST 12 L (15-37) U/L ALT 9 L (12-78) U/L Alkaline Phosphatase 112 (46-116) U/L Serum Total Protein 6.8 (6.4-8.2) gm/dL Albumin 2.9 L (3.4-5.0) g/dL Ur Collection Type Urine Color (YELLOW) Urine Appearance (CLEAR) Urine pH (5-6) Ur Specific [place] (1.005-1.025) Urine Protein (Negative) Urine Ketones (NEGATIVE) Urine Blood (0-5) Rikki/ul Urine Nitrite (NEGATIVE) Urine Bilirubin (NEGATIVE) Urine Urobilinogen (0-1) mg/dL Ur Leukocyte Esterase (NEGATIVE) Urine Microscopic RBC (0-2) /HPF Urine Microscopic WBC (0-5) /HPF Ur Epithelial Cells (FEW) /HPF Urine Bacteria (NEGATIVE) /HPF Ur Random Creatinine (30-125) MG/DL U Random Total Protein mg/dL Urine Glucose (NEGATIVE) mg/dL Specimen Received Radiology Exams: Radiology Procedures Category Date Time Status ECHO W/2D AND DOPPLER [US] Routine Exams 03/09/17 08:00 Taken KIDNEY [US] Routine Exams 03/10/17 08:00 Taken Multi-Disciplinary Progress Notes: Multi-Disciplinary Progress Notes 03/09/17 09:52 Case Management Note by Roxy Delarosa PAPERS DISCUSSED WITH PT, SIGNED AND COPY TO PATIENT AND COPY TO CHART. Initialized on 03/09/17 09:52 - END OF NOTE Assessment/Plan (1) Hypertensive heart and chronic kidney disease with heart failure Current Visit: Yes Status: Chronic Code(s): I13.0 - HYP HRT & CHR KDNY DIS W HRT FAIL AND STG 1-4/UNSP CHR KDNY; I50.9 - HEART FAILURE, UNSPECIFIED; N18.9 - CHRONIC KIDNEY DISEASE, UNSPECIFIED (2) Nocturnal hypoxemia Current Visit: Yes Status: Acute Code(s): G47.34 - IDIO SLEEP RELATED NONOBSTRUCTIVE ALVEOLAR HYPOVENTILATION (3) Physical debility Current Visit: Yes Status: Acute Code(s): R53.81 - OTHER MALAISE (4) Physical deconditioning Current Visit: Yes Status: Acute Code(s): R53.81 - OTHER MALAISE
--- NOTE | 2017-03-10 08:31 | XRAY ---
Indication: Elevated labs. Two-dimensional renal sonogram performed. Comparison: None Both kidneys normal in reniform shape with normal color perfusion. The right kidney measures 9.8 x 4.3 x 4.9 cm and the left measures 11.7 x 4.5 x 4.4 cm. There is a 1.3 cm left lower pole cyst. No solid renal mass, hydronephrosis, or perinephric fluid. Cortical medullary differentiation preserved with mild cortical thinning. Urinary bladder nominally distended without focal abnormality. Normal left ureteral jet. Right ureteral jet not seen within the allotted exam time. Impression: 1. Right kidney is smaller in size either developmental versus chronic kidney disease versus scarring. 2. Mild bilateral renal cortical thinning. 3. Left renal cyst.
[2017-03-10] MEDS: ECOTRIN 81 MG PO SCH (09:17)
[2017-03-10] MEDS: COREG 12.5 MG PO SCH ×2 (09:17→21:54)
[2017-03-10] MEDS: Apresoline 25 MG TABLET PO SCH ×3 (09:17→21:54)
[2017-03-10] MEDS: ZYLOPRIM 300 MG PO SCH (09:18)
[2017-03-10] MEDS: SYNTHROID 75 MCG PO SCH (09:18)
[2017-03-10] MEDS: Flomax 0.4 MG PO SCH (09:18)
[2017-03-10] MEDS: hydroDIURIL 25 MG PO SCH (09:26)
[2017-03-10] MEDS: Lasix 40 MG/4 ML IV SCH ×2 (09:26→17:29)
[2017-03-10] MEDS: FLUID RESTRICTION MISC MC SCH (09:40)
--- NOTE | 2017-03-10 14:13 | PCM.HP ---
History of Present Illness - Chief Complaint Chief Complaint: SYNCOPE, ACUTE RENAL FAILURE History of Present Illness: is a 86 year old male. Medications & Allergies Home Medications: Home Medication List Allopurinol 100 mg [Zyloprim 100 mg] 150 mg PO DAILY 06/07/14 [History Confirmed 03/08/17] Cholecalciferol (Vitamin D3) [Maximum D3] 1 cap PO WEEKLY 06/07/14 [History Confirmed 03/08/17] Levothyroxine Sodium 75 Mcg [Synthroid 75 Mcg] 75 mcg PO DAILY 06/07/14 [ History Confirmed 03/08/17] Furosemide 40 mg PO BID 05/31/15 [History Confirmed 03/08/17] Tamsulosin HCl 0.4 mg [Flomax 0.4 MG] 0.4 mg PO DAILY 05/31/15 [History Confirmed 03/08/17] Carvedilol 12.5 mg [Coreg 12.5 mg] 12.5 mg PO BID 02/10/16 [History Confirmed 03/08/17] Aspirin [Aspir-Low] 81 mg PO DAILY 03/08/17 [History Confirmed 03/08/17] Allergies/Adverse Reactions: Allergies Allergy/AdvReac Type Severity Reaction Status Date / Time No Known Drug Allergies Allergy Verified 05/31/15 17:09 - Past Medical History Past Medical History: Yes Neurological History: No Pertinent History ENT History: No Pertinent History Cardiac History: Angina, Arrhythmia, Hypertension, Other Respiratory History: CHF, COPD Endocrine Medical History: Hypothyroidism Musculoskelatal History: Arthritis, Fractures GI Medical History: No Pertinent History History: Renal Disease Pyscho-Social History: No Pertinent History Male Reproductive Disorders: Prostate Problems Comment: fractured left arm, fractured fingers ppm 06/2015 for atrial fib leaky valve - Past Surgical History Past Surgical History: Yes Neuro Surgical History: No Pertinent History Cardiac History: Pacemaker, Other Respiratory Surgery: No Pertinent History GI Surgical History: No Pertinent History Genitourinary Surgical Hx: No Pertinent History Musculskeletal Surgical Hx: Orthopedic Surgery Male Surgical History: No Pertinent History Other Surgical History: [place] teeth out, surgery on hand - Social History Smoking Status: Former smoker Exposure to second hand smoke: No Alcohol: None Drug Use: none - Physical Exam Vital Signs: Vital Signs - 24 hr Temp Pulse Resp BP BP Pulse Ox 03/10/17 11:37 98.3 F 76 22 161/76 94 L 03/10/17 07:37 97.6 F 71 18 148/70 95 03/10/17 07:14 76 20 94 L 03/10/17 04:45 75 26 H 97 03/10/17 04:10 97.9 F 65 26 H 155/71 94 L 03/10/17 00:00 26 H 03/09/17 23:00 98.1 F 63 26 H 137/62 133/91 97 03/09/17 20:36 66 16 97 03/09/17 20:00 16 03/09/17 19:00 97.6 F 77 16 165/74 133/91 95 03/09/17 15:00 97.8 F 74 22 165/74 94 L Oxygen-Last 24 hours O2 Percentage 5 Liters = 40% O2 Percentage 5 Liters = 40% O2 Percentage 4 Liters = 36% O2 Percentage 5 Liters = 40% O2 Percentage 5 Liters = 40% Results - Labs Lab/Micro Results: Lab Results-Last 24 Hours 03/09/17 03/09/17 03/10/17 Range/Units 15:35 15:35 05:05 WBC 7.6 (4.0-10.5) K/mm3 RBC 4.46 (4.1-5.6) M/mm3 Hgb 12.2 L (12.5-18.0) gm/dl Hct 39.2 L (42-50) % MCV 87.9 (78-100) fl MCH 27.3 (26-32) pg MCHC 31.1 L (32-36) g/dl RDW 18.9 H (11.5-14.0) % Plt Count 221 (150-450) K/mm3 MPV 11.4 H (6-9.5) fl Sodium (136-145) mEq/L Potassium (3.5-5.1) mEq/L Chloride (98-107) mEq/L Carbon Dioxide (21-32) mEq/L Anion Gap (5-15) MEQ/L BUN (9-20) mg/dL Creatinine (0.55-1.30) mg/dl Estimated GFR ML/MIN Glucose (70-110) MG/DL Calcium (8.5-10.1) mg/dL Magnesium (1.8-2.4) mg/dL Total Bilirubin (0.2-1.0) mg/dL AST (15-37) U/L ALT (12-78) U/L Alkaline Phosphatase (46-116) U/L Serum Total Protein (6.4-8.2) gm/dL Albumin (3.4-5.0) g/dL Ur Collection Type VOID Urine Color YELLOW (YELLOW) Urine Appearance CLEAR (CLEAR) Urine pH 5.0 (5-6) Ur Specific [place] 1.015 (1.005-1.025) Urine Protein 50 (Negative) Urine Ketones NEGATIVE (NEGATIVE) Urine Blood 5-10 (0-5) Rikki/ul Urine Nitrite NEGATIVE (NEGATIVE) Urine Bilirubin NEGATIVE (NEGATIVE) Urine Urobilinogen 1 (0-1) mg/dL Ur Leukocyte Esterase NEGATIVE (NEGATIVE) Urine Microscopic RBC 2-5 (0-2) /HPF Urine Microscopic WBC 0-2 (0-5) /HPF Ur Epithelial Cells RARE (FEW) /HPF Urine Bacteria RARE (NEGATIVE) /HPF Ur Random Creatinine 60.48 (30-125) MG/DL U Random Total Protein 27.1 mg/dL Urine Glucose NEGATIVE (NEGATIVE) mg/dL Specimen Received 03/09/17 1545 03/10/17 03/10/17 Range/Units 05:05 05:05 WBC (4.0-10.5) K/mm3 RBC (4.1-5.6) M/mm3 Hgb (12.5-18.0) gm/dl Hct (42-50) % MCV (78-100) fl MCH (26-32) pg MCHC (32-36) g/dl RDW (11.5-14.0) % Plt Count (150-450) K/mm3 MPV (6-9.5) fl Sodium 144 (136-145) mEq/L Potassium 3.8 (3.5-5.1) mEq/L Chloride 108 H (98-107) mEq/L Carbon Dioxide 27.1 (21-32) mEq/L Anion Gap 12.5 (5-15) MEQ/L BUN 29 H (9-20) mg/dL Creatinine 1.61 H (0.55-1.30) mg/dl Estimated GFR 43 ML/MIN Glucose 99 (70-110) MG/DL Calcium 9.1 (8.5-10.1) mg/dL Magnesium 2.2 (1.8-2.4) mg/dL Total Bilirubin 0.90 (0.2-1.0) mg/dL AST 12 L (15-37) U/L ALT 9 L (12-78) U/L Alkaline Phosphatase 112 (46-116) U/L Serum Total Protein 6.8 (6.4-8.2) gm/dL Albumin 2.9 L (3.4-5.0) g/dL Ur Collection Type Urine Color (YELLOW) Urine Appearance (CLEAR) Urine pH (5-6) Ur Specific [place] (1.005-1.025) Urine Protein (Negative) Urine Ketones (NEGATIVE) Urine Blood (0-5) Rikki/ul Urine Nitrite (NEGATIVE) Urine Bilirubin (NEGATIVE) Urine Urobilinogen (0-1) mg/dL Ur Leukocyte Esterase (NEGATIVE) Urine Microscopic RBC (0-2) /HPF Urine Microscopic WBC (0-5) /HPF Ur Epithelial Cells (FEW) /HPF Urine Bacteria (NEGATIVE) /HPF Ur Random Creatinine (30-125) MG/DL U Random Total Protein mg/dL Urine Glucose (NEGATIVE) mg/dL Specimen Received - Radiology Impressions Radiology Exams & Impressions: Radiology Procedures Category Date Time Status ECHO W/2D AND DOPPLER [US] Routine Exams 03/09/17 08:00 Taken KIDNEY [US] Routine Exams 03/10/17 08:00 Completed
[2017-03-10] MEDS: Sodium Chloride 0.9% 500 ML 500 ML IV SCH (14:29)
[2017-03-10 17:57] LABS: ALBUMIN 3.2 g/dL (3.4-5.0); ANION GAP 13.9 MEQ/L (5-15); BILIRUBIN,TOTAL 0.9 mg/dL (0.2-1.0); Carbon Dioxide 28.5 mEq/L (21-32); MAGNESIUM 2.3 mg/dL (1.8-2.4); Potassium 3.8 mEq/L (3.5-5.1); Total Protein 7.4 gm/dL (6.4-8.2)
[2017-03-11 07:57] LABS: Prostate Specific Antigen 11.81 ng/mL (<=7.20)
[2017-03-11] MEDS: ZYLOPRIM 300 MG PO SCH (09:39)
[2017-03-11] MEDS: COREG 12.5 MG PO SCH ×2 (09:39→20:11)
[2017-03-11] MEDS: ECOTRIN 81 MG PO SCH (09:39)
[2017-03-11] MEDS: Apresoline 25 MG TABLET PO SCH ×3 (09:40→20:10)
[2017-03-11] MEDS: hydroDIURIL 25 MG PO SCH (09:41)
[2017-03-11] MEDS: FLUID RESTRICTION MISC MC SCH (09:41)
[2017-03-11] MEDS: SYNTHROID 75 MCG PO SCH (09:41)
[2017-03-11] MEDS: Lasix 40 MG/4 ML IV SCH ×2 (09:41→16:24)
[2017-03-11] MEDS: Flomax 0.4 MG PO SCH (09:41)
--- NOTE | 2017-03-11 09:43 | ECHO ---
DATE OF PROCEDURE: 03/09/2017 CLINICAL INFORMATION: Congestive heart failure. The M-mode 2D, and Doppler echocardiogram including color flow Doppler shows the left ventricle is dilated at 7.3 cm. There is no apical thrombus noted. The septal wall thickness is increased at 1.3 cm. The left ventricular posterior wall thickness is increased at 1.8 cm. The left ventricular ejection fraction is decreased at 37%. The left ventricular systolic function is mild to moderately decreased. There is diffuse hypokinesis present. The right ventricle appears to be moderate to severely decrease in left ventricular function. It appears to be moderately dilated. The left atrium is moderately dilated with a dimension of 5.6 cm. The right atrium is not well visualized. There is mild aortic regurgitation present. There is moderate mitral regurgitation present. There is moderate to severe tricuspid regurgitation present with moderate pulmonary hypertension. The right ventricular systolic pressure is 50 mm of [place]. There is mild pulmonic regurgitation present. The aortic root is borderline dilated with a dimension of 3.7 cm. There is no pericardial effusion present. IMPRESSION: 1) SEVERE LEFT VENTRICULAR SYSTOLIC DILATATION. 2) MILD TO MODERATE DECREASE IN LEFT VENTRICULAR SYSTOLIC FUNCTION. 3) MODERATE ASYMMETRIC LEFT VENTRICULAR HYPERTROPHY. 4) MODERATE LEFT ATRIAL DILATATION. 5) MILD TO MODERATE AORTIC REGURGITATION. 6) MODERATE MITRAL REGURGITATION. 7) MODERATE TO SEVERE TRICUSPID REGURGITATION. 8) MILD PULMONIC REGURGITATION. 9) BORDERLINE AORTIC ROOT DILATATION.
[2017-03-11] MEDS ORDERED: Sodium Chloride 0.9% 10 ML FLUSH Syringe IV PRN (10:34)
[2017-03-11 10:42] LABS: ANION GAP 13.3 MEQ/L (5-15); Carbon Dioxide 31.6 mEq/L (21-32); MAGNESIUM 2.2 mg/dL (1.8-2.4); Potassium 3.6 mEq/L (3.5-5.1)
--- NOTE | 2017-03-11 13:12 | PCM.NOTE ---
Date and Time: 03/11/17 1310 Subjective Assessment: doing better - Review of Systems Constitutional: No Fever, No Chills Eyes: No Symptoms Ears, Nose, & Throat: No Symptoms Respiratory: No Cough, No Short Of Breath Cardiac: No Chest Pain, No Edema, No Syncope Abdominal/Gastrointestinal: No Abdominal Pain, No Nausea, No Vomiting, No Diarrhea Genitourinary Symptoms: No Dysuria Musculoskeletal: No Back Pain, No Neck Pain Skin: No Rash Neurological: No Dizziness, No Focal Weakness, No Sensory Changes Psychological: No Symptoms Endocrine: No Symptoms Hematologic/Lymphatic: No Symptoms Immunological/Allergic: No Symptoms Objective Exam General Appearance: no apparent distress, alert Neurologic Exam: alert, oriented x 3, cooperative, normal mood/affect, nml cerebellar function, sensation nml, No motor deficits Skin Exam: normal color, warm, dry Eye Exam: PERRL, EOMI, eyes nml inspection Ears, Nose, Throat Exam: normal ENT inspection, pharynx normal, moist mucous membranes Neck Exam: normal inspection, non-tender, supple, full range of motion Respiratory Exam: diminished breath sounds, crackles/rales, rhonchi, No respiratory distress Cardiovascular Exam: irregular, edema Gastrointestinal/Abdomen Exam: soft, No tenderness, No mass Extremity Exam: normal inspection, normal range of motion Back Exam: normal inspection, normal range of motion, No CVA tenderness, No vertebral tenderness Male Genitalia Exam: deferred Rectal Exam: deferred OBJECTIVE DATA Vital Signs: Vital Signs - 24 hr Temp Pulse Resp BP Pulse Ox 03/11/17 12:07 98 F 87 22 154/66 95 03/11/17 08:36 96 H 18 96 03/11/17 07:05 98.1 F 95 H 20 139/85 95 03/11/17 04:00 98.1 F 74 24 164/72 94 L 03/11/17 00:00 24 03/10/17 23:48 97.9 F 79 26 H 165/75 96 03/10/17 20:00 97.5 F 75 28 H 192/74 94 L 03/10/17 15:46 98.3 F 71 18 138/66 94 L Oxygen-Last 24 hours O2 Percentage 2 Liters = 28% O2 Percentage 4 Liters = 36% O2 Percentage 4 Liters = 36% O2 Percentage 4 Liters = 36% O2 Percentage 4 Liters = 36% O2 Percentage 2 Liters = 28% Pain Assessment - Last Documented Pain Intensity 0 Pain Scale Used 0-10 Pain Scale Intake and Output: Intake & Output 03/09/17 03/10/17 03/11/17 03/12/17 11:59 11:59 11:59 11:59 Intake Total 1682 100 559 Output Total 2516 216 7175 Balance 682 300 -2341 Weight 95.028 kg 93.213 kg 93.168 kg Lab Results: Lab Results-Last 24 Hours 03/10/17 03/10/17 03/11/17 Range/Units 05:05 17:00 10:18 Sodium 144 144 (136-145) mEq/L Potassium 3.8 3.6 (3.5-5.1) mEq/L Chloride 105 103 (98-107) mEq/L Carbon Dioxide 28.5 31.6 (21-32) mEq/L Anion Gap 13.9 13.3 (5-15) MEQ/L BUN 31 H 29 H (9-20) mg/dL Creatinine 1.83 H 1.79 H (0.55-1.30) mg/dl Estimated GFR 37 38 ML/MIN Glucose 97 145 H (70-110) MG/DL Calcium 9.7 9.4 (8.5-10.1) mg/dL Magnesium 2.3 2.2 (1.8-2.4) mg/dL Total Bilirubin 0.90 1.00 (0.2-1.0) mg/dL AST 14 L 14 L (15-37) U/L ALT 11 L 13 (12-78) U/L Alkaline Phosphatase 139 H 127 H (46-116) U/L Serum Total Protein 7.4 7.0 (6.4-8.2) gm/dL Albumin 3.2 L 3.0 L (3.4-5.0) g/dL Prostate Specific Ag 11.81 H (<=7.20) ng/mL Free PSA 33 % Radiology Exams: Radiology Procedures Category Date Time Status KIDNEY [US] Routine Exams 03/10/17 08:00 Completed Multi-Disciplinary Progress Notes: Multi-Disciplinary Progress Notes 03/10/17 13:40 (created 03/10/17 13:52) Case Management Note by Ilsa Martin MD ORDER FOR PT TO EVAL AND TREAT PER PT'S DAUGHTER REQUEST PRIOR TO DC HOME. HAS INCREASED WEAKNESS AND SOB. CURRENTLY ON 4L O2 PER NC. NORMALLY WEARS 2L O2 PER NC. DAUGHTER DOES REQUEST HHC SERVICES ON DISCHARGE. REQUESTS REFERRAL TO [facility]. DECLINED ADDNL NEEDS. HAS ALL NECESSARY EQUIP AT HOME. WILL CONT TO FOLLOW FOR ALL DC NEEDS. Initialized on 03/10/17 13:52 - END OF NOTE Assessment/Plan (1) Hypertensive heart and chronic kidney disease with heart failure Current Visit: Yes Status: Chronic Code(s): I13.0 - HYP HRT & CHR KDNY DIS W HRT FAIL AND STG 1-4/UNSP CHR KDNY; I50.9 - HEART FAILURE, UNSPECIFIED; N18.9 - CHRONIC KIDNEY DISEASE, UNSPECIFIED (2) Nocturnal hypoxemia Current Visit: Yes Status: Acute Code(s): G47.34 - IDIO SLEEP RELATED NONOBSTRUCTIVE ALVEOLAR HYPOVENTILATION (3) Physical debility Current Visit: Yes Status: Acute Code(s): R53.81 - OTHER MALAISE (4) Physical deconditioning Current Visit: Yes Status: Acute Code(s): R53.81 - OTHER MALAISE
[2017-03-11] MEDS: Sodium Chloride 0.9% 10 ML FLUSH Syringe IV SCH ×2 (14:26→20:23)
[2017-03-11] MEDS: DUONEB 0.5-3 MG/3 ml Neb IH PRN (20:46)
[2017-03-12] MEDS: Sodium Chloride 0.9% 10 ML FLUSH Syringe IV SCH (06:17)
--- NOTE | 2017-03-12 09:37 | PCM.DS ---
Discharge Summary Date of Admission: 03/08/17 07:39 Admitting Physician: CRISTINA VALVERDE Primary Care Provider: CRISTINA VALVERDE Allergies Allergies No Known Drug Allergies Allergy (Verified 05/31/15 17:09) Hospital Summary - Hospital Course Hospital Course: Chief Complaint Diagnosis SYNCOPE, ACUTE RENAL FAILURE Allergies Allergy/AdvReac Type Severity Reaction Status Date / Time No Known Drug Allergies Allergy Verified 05/31/15 17:09 Vital Signs (Last 24 hours) Temp Pulse Resp BP BP Pulse Ox 03/12/17 07:10 98.2 F 72 18 169/72 92 L 03/12/17 04:00 97.6 F 66 22 165/73 96 03/12/17 00:20 98.6 F 63 20 120/56 95 03/11/17 20:46 78 20 95 03/11/17 20:00 97.6 F 73 19 187/77 133/91 94 L 03/11/17 16:31 97.8 F 90 20 157/70 93 L 03/11/17 12:07 98 F 87 22 154/66 95 Home Medications Medication Instructions Recorded Confirmed Last Taken Type Aspirin [Aspir-Low] 81 mg PO DAILY 03/08/17 03/08/17 03/07/17 History Current Medications Generic Name Dose Route Start Last Admin Trade Name Freq PRN Reason Stop Dose Admin Acetaminophen 650 mg 03/08/17 02:09 Tylenol 325 Mg PO 04/07/17 02:08 Q4H PRN PRN PAIN AND/OR FEVER Albuterol/Ipratropium 3 ml 03/09/17 04:16 03/11/17 20:46 Duoneb 0.5-3 Mg/3 Ml Neb IH 04/08/17 04:14 3 ml Q4HPRN PRN Administration SHORTNESS OF BREATH/WHEEZING Allopurinol 150 mg 03/08/17 10:00 03/11/17 09:39 Zyloprim 300 Mg PO 04/07/17 09:59 150 mg DAILY KHUSHBU Administration Aspirin 81 mg 03/08/17 10:00 03/11/17 09:39 Ecotrin 81 Mg PO 04/07/17 09:59 81 mg DAILY KHUSHBU Administration Carvedilol 12.5 mg 03/08/17 10:00 03/11/17 20:11 Coreg 12.5 Mg PO 04/07/17 09:59 12.5 mg BID KHUSHBU Administration Cholecalciferol 10,000 unit 03/08/17 10:00 03/08/17 09:38 Vitamin D PO 04/07/17 09:59 Not Given [place] KHUSHBU Furosemide 40 mg 03/09/17 14:00 03/11/17 16:24 Lasix 40 Mg/4 Ml IV 04/08/17 13:59 40 mg BID DIURETIC KHUSHBU Administration Hydralazine HCl 12.5 mg 03/09/17 15:00 03/11/17 20:10 Apresoline 25 Mg Tablet PO 04/08/17 14:59 12.5 mg TID KHUSHBU Administration Hydrochlorothiazide 25 mg 03/10/17 10:00 03/11/17 09:41 Hydrodiuril 25 Mg PO 04/09/17 09:59 25 mg DAILY KHUSHBU Administration Levothyroxine Sodium 75 mcg 03/08/17 10:00 03/11/17 09:41 Synthroid 75 Mcg PO 04/07/17 09:59 75 mcg DAILY KHUSHBU Administration Non-Formulary Medication 1,500 03/10/17 10:00 03/11/17 09:41 MC 04/09/17 09:59 1,500 DAILY KHUSHBU Administration Promethazine HCl 12.5 mg 03/08/17 02:09 Phenergan 25 Mg Inj IV 04/07/17 02:08 Q6H PRN PRN NAUSEA/VOMITING Sodium Chloride 10 ml 03/11/17 14:00 03/12/17 06:17 Sodium Chloride 0.9% 10 Ml Flush Syringe IV 04/10/17 13:59 10 ml Q8HT KHUSHBU Administration Sodium Chloride 10 ml 03/11/17 10:34 Sodium Chloride 0.9% 10 Ml Flush Syringe IV 04/10/17 10:33 PRN PRN Tamsulosin HCl 0.4 mg 03/08/17 10:00 03/11/17 09:41 Flomax 0.4 Mg PO 04/07/17 09:59 0.4 mg DAILY KHUSHBU Administration Discontinued Medications Generic Name Dose Route Start Last Admin Trade Name Freq PRN Reason Stop Dose Admin Albuterol/Ipratropium 3 ml 03/08/17 03:00 03/09/17 04:14 Duoneb 0.5-3 Mg/3 Ml Neb IH 04/07/17 02:59 Not Given Q4HRT KHUSHBU Furosemide 40 mg 03/08/17 10:00 03/09/17 10:06 Lasix 40 Mg PO 04/07/17 09:59 40 mg BID DIURETIC KHUSHBU Administration Sodium Chloride 1,000 mls @ 100 mls/hr 03/07/17 23:45 03/08/17 00:28 Sodium Chloride 0.9% 1000 Ml IV 04/06/17 23:44 100 mls/hr .Q10H KHUSHBU Administration Sodium Chloride Confirm 03/08/17 00:16 Sodium Chloride 0.9% 1000 Ml Administered 03/08/17 00:17 Dose 1,000 mls @ ud .ROUTE .STK-MED ONE Sodium Chloride 1,000 mls @ 100 mls/hr 03/08/17 02:09 03/08/17 18:26 Sodium Chloride 0.9% 1000 Ml IV 04/07/17 02:08 100 mls/hr .Q10H KHUSHBU Administration Sodium Chloride 500 mls @ 10 mls/hr 03/09/17 14:00 03/10/17 14:29 Sodium Chloride 0.9% 500 Ml IV 04/08/17 13:59 10 mls/hr .Q24H KHUSHBU Administration Intake & Output (Last 24 hours) 03/09/17 03/10/17 03/11/17 03/12/17 11:59 11:59 11:59 11:59 Intake Total 1682 100 559 340 Output Total 6674 476 0934 1350 Balance 682 300 -2341 -1010 Weight 95.028 kg 93.213 kg 93.168 kg 89.675 kg Laboratory Results (Last 24 hours) 03/11/17 03/10/17 10:18 05:05 Sodium 144 Potassium 3.6 Chloride 103 Carbon Dioxide 31.6 Anion Gap 13.3 BUN 29 H Creatinine 1.79 H Estimated GFR 38 Glucose 145 H Calcium 9.4 Magnesium 2.2 Total Bilirubin 1.00 AST 14 L ALT 13 Alkaline Phosphatase 127 H Serum Total Protein 7.0 Albumin 3.0 L Prostate Specific Ag 11.81 H Free PSA 33 Orders (Last 24 hours) Category Date Time Status Ambulate Patient TID Care 03/11/17 09:59 Active Saline Lock [Change IV to Saline Lock] ROUTINE Care 03/11/17 10:11 Completed CMP Urgent Lab 03/11/17 10:18 Completed MAG [MAGNESIUM] Urgent Lab 03/11/17 10:18 Completed NaCl 0.9% 10 ML FLUSH [Sodium Chloride 0.9% 10 ML FLUSH Med 03/11/17 10:34 Active Syringe] 10 ml IV PRN PRN NaCl 0.9% 10 ML FLUSH [Sodium Chloride 0.9% 10 ML FLUSH Med 03/11/17 14:00 Active Syringe] 10 ml IV Q8HT RT Miscellaneous Order ROUTINE RT 03/11/17 10:00 Active Patient Care Notes (Last 24 hours) 03/12/17 01:29 Respiratory Note by Rishabh Castillo INCREASED PT O2 FROM 4LPM TO 5LPM HIS SATS KEEP DROPPING LOW 89%. Initialized on 03/12/17 01:29 - END OF NOTE - Vitals & Intake/Output Vital Signs: Vital Signs Temperature 98.2 F 03/12/17 07:10 Pulse Rate 72 03/12/17 07:10 Respiratory Rate 18 03/12/17 07:10 Blood Pressure 169/72 03/12/17 07:10 O2 Sat by Pulse Oximetry 92 L 03/12/17 07:10 Oxygen-Last Documented O2 Percentage 4 Liters = 36% Intake & Output: Intake & Output 03/09/17 03/10/17 03/11/17 03/12/17 11:59 11:59 11:59 11:59 Intake Total 1682 100 559 340 Output Total 2939 559 5262 1350 Balance 782 300 -2341 -1010 Weight 95.028 kg 93.213 kg 93.168 kg 89.675 kg - Lab Result Diagrams: 03/10/17 05:05 03/11/17 10:18 Lab Results-Last 24 Hrs: Lab Results-Last 24 Hours 03/10/17 03/11/17 Range/Units 05:05 10:18 Sodium 144 (136-145) mEq/L Potassium 3.6 (3.5-5.1) mEq/L Chloride 103 (98-107) mEq/L Carbon Dioxide 31.6 (21-32) mEq/L Anion Gap 13.3 (5-15) MEQ/L BUN 29 H (9-20) mg/dL Creatinine 1.79 H (0.55-1.30) mg/dl Estimated GFR 38 ML/MIN Glucose 145 H (70-110) MG/DL Calcium 9.4 (8.5-10.1) mg/dL Magnesium 2.2 (1.8-2.4) mg/dL Total Bilirubin 1.00 (0.2-1.0) mg/dL AST 14 L (15-37) U/L ALT 13 (12-78) U/L Alkaline Phosphatase 127 H (46-116) U/L Serum Total Protein 7.0 (6.4-8.2) gm/dL Albumin 3.0 L (3.4-5.0) g/dL Prostate Specific Ag 11.81 H (<=7.20) ng/mL Free PSA 33 % - Procedures and Test Procedures and Tests throughout Hospitalization: Therapy Orders & Screens 03/10/17 13:39 PT Eval & Treat ( Order) ROUTINE Evaluate: Yes Treat: Yes Reason for Eval:: WEAKNESS, SOB, SYNCOPE Diagnosis: SYNCOPE, ACUTE RENAL FAILURE 03/11/17 10:00 RT Miscellaneous Order ROUTINE Comment: Physician Instructions: Reason For Exam: WEAN OXYGEN BACK TO 2L - WEARS 12/01 AT HOME Diagnosis: SYNCOPE, ACUTE RENAL FAILURE Discharge Exam General Appearance: no apparent distress, alert Neurologic Exam: alert, oriented x 3, cooperative, normal mood/affect, nml cerebellar function, sensation nml, No motor deficits Skin Exam: normal color, warm, dry Eye Exam: PERRL, EOMI, eyes nml inspection Ears, Nose, Throat Exam: normal ENT inspection, pharynx normal, moist mucous membranes Neck Exam: normal inspection, non-tender, supple, full range of motion Respiratory Exam: normal breath sounds, lungs clear, No respiratory distress Cardiovascular Exam: regular rate/rhythm, normal heart sounds Gastrointestinal/Abdomen Exam: soft, No tenderness, No mass Extremity Exam: normal inspection, normal range of motion Back Exam: normal inspection, normal range of motion, No CVA tenderness, No vertebral tenderness Male Genitalia Exam: deferred Rectal Exam: deferred Final Diagnosis/Problem List - Final Discharge Diagnosis/Problem (1) Hypertensive heart and chronic kidney disease with heart failure Current Visit: Yes Status: Chronic Assessment & Plan: doing better, will d/c to [facility] for further rehab. (2) Nocturnal hypoxemia Current Visit: Yes Status: Acute Assessment & Plan: continue oxygen. (3) Physical debility Current Visit: Yes Status: Acute Assessment & Plan: will send him rehab (4) Physical deconditioning Current Visit: Yes Status: Acute - Discharge Discharge Date: 03/12/17 Disposition: Home, Self-Care Condition: Stable Prescriptions: Continue Allopurinol 100 mg [Zyloprim 100 mg] 150 mg PO DAILY Levothyroxine Sodium 75 Mcg [Synthroid 75 Mcg] 75 mcg PO DAILY Cholecalciferol (Vitamin D3) [Maximum D3] 1 cap PO WEEKLY Tamsulosin HCl 0.4 mg [Flomax 0.4 MG] 0.4 mg PO DAILY Furosemide 40 mg PO BID Carvedilol 12.5 mg [Coreg 12.5 mg] 12.5 mg PO BID Aspirin [Aspir-Low] 81 mg PO DAILY Additional Instructions: Follow up with at [place] on 03/18/17@ 9:30 a.m.,follow up with at [facility] on 03/20/17@ 9:45a.m., and @ [facility] 03/30 @ 11:20 a.m. Follow up with: ALDO MCDONALD [CONSULTING PHYSICIAN] - 03/30/17 11:20 am (at [facility]) ARIANNA PARKINSON MD [NON-STAFF PHY W/O PRIVILEGES] - 03/20/17 9:45 am CRISTINA VALVERDE MD [Primary Care Provider] - 03/18/17 9:30 am
[2017-03-12] MEDS: Flomax 0.4 MG PO SCH (10:08)
[2017-03-12] MEDS: ZYLOPRIM 300 MG PO SCH (10:09)
[2017-03-12] MEDS: Lasix 40 MG/4 ML IV SCH ×3 (10:09→17:01)
[2017-03-12] MEDS: COREG 12.5 MG PO SCH (10:10)
[2017-03-12] MEDS: SYNTHROID 75 MCG PO SCH (10:10)
[2017-03-12] MEDS: Apresoline 25 MG TABLET PO SCH ×2 (10:10→15:12)
[2017-03-12] MEDS: ECOTRIN 81 MG PO SCH (10:10)
[2017-03-12] MEDS: hydroDIURIL 25 MG PO SCH (10:11)
[2017-03-12] MEDS: FLUID RESTRICTION MISC MC SCH (10:11)
[2017-03-12 11:51] LABS: PROTEIN BETA 2 0.32 g/dL (0.18-0.50); Protein Beta 1 0.45 g/dL (0.35-0.66)
[2017-03-12 12:37] LABS: Monoclonal Protein ID Interp See Result Note:
[2017-03-12 15:13] VITALS: BP 143/65; PULSE 75; O2SAT 95
== END 2017-03-12 17:50 | DRG 291 ==
LOC: ED 23:38 → MED SURG 03-08 01:53 → OBSVTOIN 03-08 07:39
PROVIDERS: ADMIT General Practice; ATTEND General Practice
DX: I13.0 Hypertensive heart and chronic kidney disease with heart failure and stage 1 through stage 4 chronic kidney disease, or unspecified chronic kidney disease (principal); I50.23 Acute on chronic systolic (congestive) heart failure; N17.9 Acute kidney failure, unspecified; J96.10 Chronic respiratory failure, unspecified whether with hypoxia or hypercapnia; N18.3 Chronic kidney disease, stage 3 (moderate); G47.34 Idiopathic sleep related nonobstructive alveolar hypoventilation; R53.81 Other malaise; E03.9 Hypothyroidism, unspecified; M10.9 Gout, unspecified; N40.0 Benign prostatic hyperplasia without lower urinary tract symptoms; I48.91 Unspecified atrial fibrillation; Z79.01 Long term (current) use of anticoagulants; Z99.81 Dependence on supplemental oxygen; J44.9 Chronic obstructive pulmonary disease, unspecified; Z95.0 Presence of cardiac pacemaker; R55 Syncope and collapse; I10 Essential (primary) hypertension
CPT/HCPCS: 36000; 36415; 70450; 71010; 76770; 80053; 80307; 81000; 81002; 82150; 82570; 82962; 83690; 83735; 83880; 84153; 84154; 84155; 84156; 84484; 85025; 85027; 86334; 93005; 93306; 94640; 94760; 96360; 99285; J1940; A9270-GY

== ENCOUNTER 2017-04-17 09:55 | Emergency (ER) | payer MEDICARE ==
[2017-04-17] MEDS ORDERED: Sodium Chloride 0.9% 1000 ML 1,000 ML IV SCH (10:15)
--- NOTE | 2017-04-17 10:16 | ERPHSYRPT ---
- History of Present Illness Time Seen by Provider: 04/17/17 10:08 Source: patient Exam Limitations: no limitations Patient Subjective Stated Complaint: STARTED VOIDING BLOOD THIS AM. HX RENAL FAILURE Triage Nursing Assessment: ARRIVES PER EMS. SKIN W/D, COLOR SALLOW. VOIDING BRIGHT RED BLOOD AT PRESENT TIME. Physician History: 86-year-old white male with history of chronic renal failure prostate problems brought from halfway with complaint of blood in his urine since this morning. Patient has no other complaints. Past medical history includes angina, arrhythmia, high blood pressure, congestive heart failure, COPD, hypothyroidism, arthritis, fractures, renal disease, prostate problems, fractured left arm and fingers, atrial fibrillation , leaky valve Patient was stage IV renal disease he is not on dialysis he is not on blood thinners other than aspirin. Past surgical history includes orthopedic surgery, wisdom teeth, surgery on his hand Timing/Duration: today (5 AM this morning) Severity: moderate Modifying Factors: Improves With: nothing Associated Symptoms: No nausea, No vomiting, No abdominal pain, No shortness of breath, No heartburn, No diaphoresis, No cough, No chills, No chest pain, No fever, No headaches, No loss of appetite, No malaise, No rash, No syncope, No seizure, No weakness Allergies/Adverse Reactions: No Known Drug Allergies Allergy (Verified 04/17/17 10:08) Home Medications: Cholecalciferol (Vitamin D3) [Maximum D3] 1 cap PO WEEKLY 06/07/14 [History] Levothyroxine Sodium 75 Mcg [Synthroid 75 Mcg] 75 mcg PO DAILY 06/07/14 [ History] Furosemide 40 mg PO DAILY 05/31/15 [History] Tamsulosin HCl 0.4 mg [Flomax 0.4 MG] 0.4 mg PO DAILY 05/31/15 [History] Carvedilol 12.5 mg [Coreg 12.5 mg] 12.5 mg PO BID 02/10/16 [History] Aspirin [Aspir-Low] 81 mg PO DAILY 03/08/17 [History] Potassium Chloride 10 Meq Tab* [Klor Con 10 MEQ] 10 meq PO TID 04/17/17 [ History] Hx Tetanus, Diphtheria Vaccination/Date Given: Yes Hx Influenza Vaccination/Date Given: Yes Hx Pneumococcal Vaccination/Date Given: No - Review of Systems Constitutional: No Fever, No Chills Eyes: No Symptoms Ears, Nose, & Throat: No Symptoms Respiratory: No Cough, No Dyspnea Cardiac: No Chest Pain, No Edema, No Syncope Abdominal/Gastrointestinal: No Abdominal Pain, No Nausea, No Vomiting, No Diarrhea, No Constipation, No Hematemesis, No Hematochezia, No Melena, No Dysphagia, No Appetite Changes Genitourinary Symptoms: Hematuria Musculoskeletal: No Back Pain, No Neck Pain Skin: No Rash Neurological: No Dizziness, No Focal Weakness, No Sensory Changes Psychological: No Symptoms Endocrine: No Symptoms All Other Systems: Reviewed and Negative - Past Medical History Pertinent Past Medical History: Yes Neurological History: No Pertinent History ENT History: No Pertinent History Cardiac History: Angina, Arrhythmia, Hypertension, Other Respiratory History: CHF, COPD Endocrine Medical History: Hypothyroidism Musculoskeletal History: Arthritis, Fractures GI Medical History: No Pertinent History History: Renal Disease Psycho-Social History: No Pertinent History Male Reproductive Disorders: Prostate Problems Other Medical History: fractured left arm, fractured fingers ppm 06/2015 for atrial fib leaky valve - Past Surgical History Past Surgical History: Yes Neuro Surgical History: No Pertinent History Cardiac: Pacemaker, Other Respiratory: No Pertinent History Gastrointestinal: No Pertinent History Genitourinary: No Pertinent History Musculoskeletal: Orthopedic Surgery Male Surgical History: No Pertinent History Other Surgical History: [place] teeth out, surgery on hand - Social History Smoking Status: Former smoker Exposure to second hand smoke: No Drug Use: none Patient Lives Alone: No - Nursing Vital Signs Nursing Vital Signs: Initial Vital Signs Temperature 97.3 F 04/17/17 09:56 Pulse Rate 64 04/17/17 09:56 Respiratory Rate 20 04/17/17 09:56 Blood Pressure 144/70 04/17/17 09:56 O2 Sat by Pulse Oximetry 97 04/17/17 09:56 Pain Scale Pain Intensity 0 - Physical Exam General Appearance: no apparent distress, alert Eye Exam: PERRL/EOMI, eyes nml inspection Ears, Nose, Throat Exam: normal ENT inspection, TMs normal, pharynx normal, moist mucous membranes Neck Exam: normal inspection, non-tender, supple, full range of motion Respiratory Exam: normal breath sounds, lungs clear, No respiratory distress Cardiovascular Exam: regular rate/rhythm, normal heart sounds, normal peripheral pulses Gastrointestinal/Abdomen Exam: soft, normal bowel sounds, No tenderness, No mass Back Exam: normal inspection, normal range of motion, No CVA tenderness, No vertebral tenderness Extremity Exam: normal inspection, normal range of motion, pelvis stable Neurologic Exam: alert, oriented x 3, cooperative, normal mood/affect, nml cerebellar function, nml station & gait, sensation nml, No motor deficits Skin Exam: normal color, warm, dry, No rash Lymphatic Exam: No adenopathy SpO2 Interpretation: normal (97%) SpO2: 97 Oxygen Delivery: Nasal Cannula - Course Nursing assessment & vital signs reviewed: Yes - CT Exams Abdomen/Pelvis CT Interpretation: Discussed w/radiologist (CT abdomen and pelvis without contrast:Impression: 1. Multifocal patchy infiltrate at lung base which is new from February 11, 2016. Minimimal infiltrate or atelectasi at the posterior right medial lung base correlate clinically. 2. Moderate cardiomegaly without significant pericardial effusion, pacemaker leads are in place, small amount posterior pleural flui bilaterally. Correlate clinically regarding fluid volume overload or mild CHF. 3. Both kidneys somewhat atrophic. Small peripelvic cyst at the lower margin of the left kidney. No renal calculi, hydronephrosis, or acute obstructive uropathy is seen involving the upper urinary tract the ureters appear unremarkable. 4. The urinary bladder is decopressed by a Griffin catheter precluding optimal assessment. Moderate to markedly prostate gland is again seen. 5. Small fat-containing right inguinal hernia. There are a couple of small soft tissue densities within this fat-containing hernia, the largest measuring 1.2 cm in diameter. These may possibly represent lymph nodes. This is smaller than that seen on February 11, 2016. 6. Small hiatal hernia, mild aneurysmal distention of the distal abdominal aorta and proximal sigmoid colon without evidence of diverticulitis and degenerative skeletal changes are again seen representing no change) Ordered Tests: Active Orders 24 hr Category Date Time Status Catheter-Butler Griffin STAT Care 04/17/17 10:10 Active IV Insertion STAT Care 04/17/17 10:10 Active ABDOMEN AND PELVIS W/0 CONTRAS [CT] Stat Exams 04/17/17 10:19 Completed CBC W DIFF Stat Lab 04/17/17 10:00 Completed CMP Stat Lab 04/17/17 10:00 Completed CULTURE,URINE Stat Lab 04/17/17 10:10 Received PROTIME WITH INR Stat Lab 04/17/17 10:00 Completed PTT Stat Lab 04/17/17 10:00 Completed UA W/ MICROSCOPIC Stat Lab 04/17/17 10:10 Completed UA W/ MICROSCOPIC Stat Lab 04/17/17 11:15 Completed Medication Summary Generic Name Dose Route Start Last Admin Trade Name Dominga PRN Reason Stop Dose Admin Sodium Chloride 1,000 mls @ 60 mls/hr 04/17/17 10:15 04/17/17 10:19 Sodium Chloride 0.9% 1000 Ml IV 05/17/17 10:14 60 mls/hr .[id number] KHUSHBU Administration Lab/Rad Data: Laboratory Result Diagrams 04/17/17 10:00 04/17/17 10:00 Laboratory Results 04/17/17 04/17/17 04/17/17 Range/Units 11:15 10:10 10:00 WBC (4.0-10.5) K/mm3 RBC (4.1-5.6) M/mm3 Hgb (12.5-18.0) gm/dl Hct (42-50) % MCV (78-100) fl MCH (26-32) pg MCHC (32-36) g/dl RDW (11.5-14.0) % Plt Count (150-450) K/mm3 MPV (6-9.5) fl Gran % (36.0-66.0) % Lymphocytes % (24.0-44.0) % Monocytes % (0.0-12.0) % Eosinophils % (0.00-5.0) % Basophils % (0.0-0.4) % Basophils # (0-0.4) INR 1.20 (0.8-3.0) APTT 36.1 (24.1-36.1) SECONDS Sodium (136-145) mEq/L Potassium (3.5-5.1) mEq/L Chloride (98-107) mEq/L Carbon Dioxide (21-32) mEq/L Anion Gap (5-15) MEQ/L BUN (9-20) mg/dL Creatinine (0.55-1.30) mg/dl Estimated GFR ML/MIN Glucose (70-110) MG/DL Calcium (8.5-10.1) mg/dL Total Bilirubin (0.2-1.0) mg/dL AST (15-37) U/L ALT (12-78) U/L Alkaline Phosphatase (46-116) U/L Serum Total Protein (6.4-8.2) gm/dL Albumin (3.4-5.0) g/dL Ur Collection Type CLEAN CATCH CCMS Urine Color YELLOW RED (YELLOW) Urine Appearance CLEAR CLOUDY (CLEAR) Urine pH 5.0 6.0 (5-6) Ur Specific [place] 1.015 1.015 (1.005-1.025) Urine Protein NEGATIVE TRACE (Negative) Urine Ketones NEGATIVE NEGATIVE (NEGATIVE) Urine Blood 250 250 (0-5) Rikki/ul Urine Nitrite NEGATIVE NEGATIVE (NEGATIVE) Urine Bilirubin NEGATIVE NEGATIVE (NEGATIVE) Urine Urobilinogen NORMAL NORMAL (0-1) mg/dL Ur Leukocyte Esterase TRACE TRACE (NEGATIVE) Urine Microscopic RBC >100 >100 (0-2) /HPF Urine Microscopic WBC 2-5 (0-5) /HPF Ur Epithelial Cells RARE FEW (FEW) /HPF Urine Bacteria FEW FEW (NEGATIVE) /HPF Urine Culture Reflexed YES (NO) Urine Glucose NEGATIVE NEGATIVE (NEGATIVE) mg/dL Specimen Received 04/17/17 1115 1027 1020 04/17/17 04/17/17 Range/Units 10:00 10:00 WBC 14.2 H (4.0-10.5) K/mm3 RBC 4.53 (4.1-5.6) M/mm3 Hgb 12.8 (12.5-18.0) gm/dl Hct 40.1 L (42-50) % MCV 88.5 (78-100) fl MCH 28.3 (26-32) pg MCHC 31.9 L (32-36) g/dl RDW 18.6 H (11.5-14.0) % Plt Count 367 (150-450) K/mm3 MPV 10.4 H (6-9.5) fl Gran % 84.2 H (36.0-66.0) % Lymphocytes % 10.0 L (24.0-44.0) % Monocytes % 5.2 (0.0-12.0) % Eosinophils % 0.4 (0.00-5.0) % Basophils % 0.2 (0.0-0.4) % Basophils # 0.03 (0-0.4) INR (0.8-3.0) APTT (24.1-36.1) SECONDS Sodium 137 (136-145) mEq/L Potassium 4.8 (3.5-5.1) mEq/L Chloride 101 (98-107) mEq/L Carbon Dioxide 30.0 (21-32) mEq/L Anion Gap 10.5 (5-15) MEQ/L BUN 50 H (9-20) mg/dL Creatinine 1.59 H (0.55-1.30) mg/dl Estimated GFR 44 ML/MIN Glucose 109 (70-110) MG/DL Calcium 9.8 (8.5-10.1) mg/dL Total Bilirubin 0.60 (0.2-1.0) mg/dL AST 35 (15-37) U/L ALT 51 (12-78) U/L Alkaline Phosphatase 141 H (46-116) U/L Serum Total Protein 7.1 (6.4-8.2) gm/dL Albumin 2.1 L (3.4-5.0) g/dL Ur Collection Type Urine Color (YELLOW) Urine Appearance (CLEAR) Urine pH (5-6) Ur Specific [place] (1.005-1.025) Urine Protein (Negative) Urine Ketones (NEGATIVE) Urine Blood (0-5) Rikki/ul Urine Nitrite (NEGATIVE) Urine Bilirubin (NEGATIVE) Urine Urobilinogen (0-1) mg/dL Ur Leukocyte Esterase (NEGATIVE) Urine Microscopic RBC (0-2) /HPF Urine Microscopic WBC (0-5) /HPF Ur Epithelial Cells (FEW) /HPF Urine Bacteria (NEGATIVE) /HPF Urine Culture Reflexed (NO) Urine Glucose (NEGATIVE) mg/dL Specimen Received - Progress Progress: improved Progress Note: 04/17/17 12:47 86-year-old white male noted to have hematuria this morning at the halfway. Patient arrives with a red urine greater than 100 red cells per high-power field in his urine. Griffin is placed patient given IV saline at 60 mL per hour. Patient now with clear yellow urine and in no distress. CT of the abdomen is pelvis is obtained Impression 1. Multifocal patchy infiltrate at the posterior left lung base and minimal infiltrate or atelectasis at the posterior medial right lung base. 2. Moderate cardiomegaly without significant pericardial effusion pacemaker leads are in place there is a small amount of posterior fluid bilaterally. 3. Both kidneys appear atrophic. There is a small peripelvic cyst of the lower margin of the left kidney. There are no renal calculi, hydronephrosis, or acute obstructive uropathy seen involving the upper urinary tract. The ureters appear unremarkable. 4. The urinary bladder is decompressed by a Griffin catheter precluding optimal assessment there is moderate to marked and prostate enlargement again seen. 5. There is a small fat-containing right inguinal hernia with 2 small soft tissue densities within the fat containing hernia the largest measuring 1.2 cm in diameter which may represent lymph nodes this is smaller than that seen on February 11, 2016. 6. There is a small hiatal hernia, mild aneurysmal distention of the distal abdominal aorta and proximal common iliac arteries. Diverticulosis of the descending and proximal sigmoid colon without evidence of diverticulitis, and degenerative skeletal changes are seen again representing no change. Patient appears to be in no acute distress the patient's family states that the patient has had a cough. He is now producing yellow urine he has per dose 1000 mL of yellow urine after Griffin was placed. Will go ahead and remove Griffin. Will place patient on Zithromax in view of what appears to be a small patchy infiltrate at the posterior left lung base. - Departure Time of Disposition: 12:57 Departure Disposition: Home Clinical Impression: Pulmonary infiltrate on radiologic exam Hematuria Qualifiers: Hematuria type: gross Qualified Code(s): R31.0 - Gross hematuria Condition: Fair Critical Care Time: No Referrals: CRISTI LOERA [Primary Care Provider] - Additional Instructions: Return to halfway. Resume current medications and treatment. Zithromax Z-LUCIA as directed. Follow-up with Dr. Montaño or Dr. Naik. Return for acute distress or for severe symptoms, Prescriptions: Azithromycin 250 mg [Zithromax 250 MG TABLET] 0 mg PO ZPACK #6 tablet
[2017-04-17] MEDS ORDERED: Sodium Chloride 0.9% 1000 ML 1,000 ML ONE (10:17)
[2017-04-17 10:19] LABS: BASOPHIL % 0.2 % (0.0-0.4); Eosinophil % 0.4 % (0.00-5.0); Granulocytes % 84.2 % (36.0-66.0); Mean Cell Volume 88.5 fl (78-100); Mean Corpuscular Hemoglobin 28.3 pg (26-32); Mean Platelet Volume 10.4 fl (6-9.5); Monocytes % 5.2 % (0.0-12.0); Platelet Count 367 K/mm3 (150-450); Red Blood Count 4.53 M/mm3 (4.1-5.6); Red Cell Distribution Width 18.6 % (11.5-14.0); White Blood Count 14.2 K/mm3 (4.0-10.5)
[2017-04-17 10:32] LABS: Collection Type CCMS; Leukocyte Esterase TRACE (NEGATIVE)
[2017-04-17 10:32] LABS: INR 1.2 (0.8-3.0); PROTIME 13.4 SECONDS (8.83-12.87)
[2017-04-17 10:33] LABS: ADD URINE CULTURE? YES (NO); Bacteria FEW /HPF (NEGATIVE); Bilirubin NEGATIVE (NEGATIVE); Blood 250 Ery/ul (0-5); COMPLETE URINE MICROSCOPIC? YES; Epithelial Cells FEW /HPF (FEW); Glucose NEGATIVE (NEGATIVE)
[2017-04-17 10:35] LABS: PTT 36.1 SECONDS (24.1-36.1)
[2017-04-17 10:40] LABS: ALBUMIN 2.1 g/dL (3.4-5.0); ANION GAP 10.5 MEQ/L (5-15); BILIRUBIN,TOTAL 0.6 mg/dL (0.2-1.0); Potassium 4.8 mEq/L (3.5-5.1); Total Protein 7.1 gm/dL (6.4-8.2)
[2017-04-17 11:24] LABS: Collection Type CLEAN CATCH; Leukocyte Esterase TRACE (NEGATIVE)
[2017-04-17 11:25] LABS: Bacteria FEW /HPF (NEGATIVE); Bilirubin NEGATIVE (NEGATIVE); Blood 250 Ery/ul (0-5); COMPLETE URINE MICROSCOPIC? YES; Epithelial Cells RARE /HPF (FEW); Glucose NEGATIVE (NEGATIVE)
--- NOTE | 2017-04-17 12:35 | XRAY ---
Exam: CT of the abdomen and pelvis without IV contrast from 04/17/2017. CTDI: 23.65 Comparison: CT of the abdomen and pelvis without IV contrast from 02/11/2016. Indication: Hematuria. Voiding blood with some clots since 5 AM today Technique: Non-IV contrast axial images were obtained through the abdomen and pelvis. Reconstructed coronal and sagittal images were created and reviewed. Findings: The heart size again appears moderately enlarged without significant pericardial effusion. Pacemaker leads are seen in place. Multifocal patchy infiltrates are seen at the posterior left lung base. Correlate clinically regarding pneumonia. I believe there is also some minimal discoid atelectasis or infiltrate at the posterior medial right lung base on axial image #8 through #11 which is new. There also appears to be a small amount of posterior pleural fluid bilaterally, left slightly greater than right. Coronary artery vascular calcification is seen. Scattered calcified granulomas are seen within the liver and spleen. No other gross abnormality is seen. The gallbladder is mildly distended and reveals no significant abnormality. The pancreas and adrenal glands appear normal. There is a small hiatal hernia. Herniation of intraperitoneal fat about the hiatal hernia is again seen. The kidneys appear relatively small suggesting some renal atrophy. There is a probable small peripelvic cyst towards the inferior portion of the left kidney on axial image #38 measuring +5.0 Hounsfield units. No renal calculi or hydronephrosis is seen. Small bilateral extrarenal pelvi are seen. No other renal mass is evident on this non-IV contrast study. The ureters appear of normal diameter and reveal no ureterolith. A urinary Griffin catheter balloon is seen within a collapsed bladder. This precludes optimal assessment of the bladder. The prostate gland is significantly enlarged measuring 6.2 cm in width and 6.0 cm in AP dimension on axial image #83. This is unchanged. Atherosclerotic vascular calcification is seen throughout a prominent abdominal aorta. The distal abdominal aorta is mildly aneurysmal measuring 3.2 cm in maximum diameter. I don't believe this represents a significant change. No abnormal retroperitoneal lymphadenopathy is seen. Both proximal common iliac arteries are slightly dilated, the right side measuring 1.6 cm in diameter and the left side measuring 1.8 cm in diameter. This is unchanged as well. There is no evidence of free intraperitoneal air. There is some weakness of the anterior abdominal wall at the level of the umbilicus with a suggestion of a minimal fat-containing hernia at this level. Some adjacent small bowel is seen, but it does not extend through the anterior abdominal wall. Moderate diverticulosis of the descending colon and proximal sigmoid colon is seen with some minor hypertrophy of the proximal sigmoid colon wall. However, I see no significant pericolonic stranding or haziness of the surrounding fat to suggest acute diverticulitis. The appendix within the right lower quadrant appears unremarkable. Some scattered stool is seen throughout the colon. The seminal vesicles appear unremarkable. No enlarged pelvic lymph nodes or free intraperitoneal fluid is seen. I note a couple small soft tissue densities within a fat-containing right inguinal hernia. This appears smaller than that seen on the 02/11/2016. These may represent small lymph nodes. See axial image #87, #88, and #92 of series #2. The skeleton reveals no acute fracture or aggressive bone lesion. Minimal scoliosis, advanced degenerative changes within the lower thoracolumbar spine, and moderate bilateral osteoarthritis of the hips are again seen. Impression: 1. I note some multifocal patchy infiltrate at the posterior left lung base which is new from 02/11/2016. There also appears to be minimal infiltrate or atelectasis at the posterior medial right lung base. Correlate clinically regarding pneumonia. 2. Moderate cardiomegaly is again seen without significant pericardial effusion. Pacemaker leads are seen in place. I also note a small amount of posterior pleural fluid bilaterally. Correlate clinically regarding fluid volume overload or mild CHF.. 3. Both kidneys appear somewhat atrophic. I believe there is a small peripelvic cyst at the lower margin of the left kidney. No renal calculi, hydronephrosis, or acute obstructive uropathy is seen involving the upper urinary tracts. The ureters appear unremarkable. 4. The urinary bladder is decompressed by a Griffin catheter precluding optimal assessment. Moderate to marked prostate gland enlargement is again seen. 5. Small fat-containing right inguinal hernia. I also note a couple small soft tissue densities within this fat-containing hernia, the largest measuring 1.2 cm in diameter. These may possibly represent lymph nodes. This is smaller than that seen on 02/11/2016. 6. Small hiatal hernia, mild aneurysmal distention of the distal abdominal aorta and proximal common iliac arteries, diverticulosis of the descending and proximal sigmoid colon without evidence of diverticulitis, and degenerative skeletal changes are again seen representing no change.
[2017-04-17 13:17] VITALS: BP 131/67; PULSE 71; O2SAT 96
== END 2017-04-17 14:21 ==
LOC: ED 09:55
DX: R91.8 Other nonspecific abnormal finding of lung field (principal); R31.0 Gross hematuria; I10 Essential (primary) hypertension; I50.9 Heart failure, unspecified; J44.9 Chronic obstructive pulmonary disease, unspecified; N18.4 Chronic kidney disease, stage 4 (severe); Z79.899 Other long term (current) drug therapy
CPT/HCPCS: 36415; 51702; 74176; 80053; 81000; 85025; 85610; 85730; 87086; 96360; 96361; 99284; P9612

== ENCOUNTER 2017-11-29 14:49 | Observation (INO) | payer MEDICARE ==
[2017-11-29] MEDS ORDERED: Pepcid 20 MG VIAL IV ONE ×2 (15:06→15:15)
[2017-11-29] MEDS ORDERED: Reglan 10 MG/2 ML IV ONE (15:06)
[2017-11-29] MEDS ORDERED: Reglan 10 MG/2 ML ONE (15:16)
[2017-11-29] MEDS ORDERED: Sodium Chloride 0.9% 1000 ML 1,000 ML ONE (15:16)
[2017-11-29 15:20] LABS: BASOPHIL % 0.4 % (0.0-0.4); Basophil (Absolute #) 0.05 (0-0.4); Eosinophil % 0.5 % (0.00-5.0); Eosinophil (Absolute #) 0.07 (0-0.5); Granulocyte Absolute (ANC) 11.25 (1.4-6.9); Granulocytes % 83.7 % (36.0-66.0); Hematocrit 42.6 % (42-50); Hemoglobin 14.3 gm/dl (12.5-18.0); Lymphocyte (Absolute #) 1.12 (1.0-4.6); Lymphocytes % 8.3 % (24.0-44.0); Mean Cell Volume 88.6 fl (78-100); Mean Corpuscular Hemoglobin 29.7 pg (26-32); Mean Corpuscular Hgb Concent. 33.6 g/dl (32-36); Mean Platelet Volume 10.6 fl (6-9.5); Monocyte (Absolute #) 0.96 (0.0-1.3); Monocytes % 7.1 % (0.0-12.0); Platelet Count 262 K/mm3 (150-450); Red Blood Count 4.81 M/mm3 (4.1-5.6); White Blood Count 13.5 K/mm3 (4.0-10.5)
[2017-11-29 15:23] LABS: Lactic Acid 4.1 (0.4-2.0)
--- NOTE | 2017-11-29 15:24 | ERPHSYRPT ---
- History of Present Illness Time Seen by Provider: 11/29/17 15:22 Historian: patient, family Patient Subjective Stated Complaint: pt ambulatory to ed with reports of chest tighteness and gagging/coughing clear sputum for several days prior-tightness began this morning Triage Nursing Assessment: pt pale warm and [id number] breathing noted increasing with movement-pt on home 02 at 5 l at all times-daughter states that pt tries to stretch his o2 by turning it down at times-right radial pulse regular Physician History: 87-year-old male with significant past medical history of chronic combined congestive heart failure, coronary artery disease, ventricular arrhythmias, atrial fibrillation, history of defibrillator and pacemaker placement came to the emergency room with complaining of chest tightness epigastric pain, nausea and and stomach upset for last 10-14 days. Patient states that it is mainly he stumbled, which is very upset and when he tried to vomit he has chest get tight. He denies any shortness of breath and patient is comfortable in the emergency room and denies any chest pain. Allergies/Adverse Reactions: No Known Drug Allergies Allergy (Verified 11/29/17 15:08) Home Medications: Levothyroxine Sodium 75 Mcg [Synthroid 75 Mcg] 75 mcg PO DAILY 06/07/14 [ History] Furosemide 40 mg PO DAILY 05/31/15 [History] Tamsulosin HCl 0.4 mg [Flomax 0.4 MG] 0.4 mg PO DAILY 05/31/15 [History] Carvedilol 12.5 mg [Coreg 12.5 mg] 12.5 mg PO BID 02/10/16 [History] Aspirin [Aspir-Low] 81 mg PO DAILY 03/08/17 [History] Potassium Chloride 10 Meq Tab* [Klor Con 10 MEQ] 10 meq PO TID 04/17/17 [ History] Ferrous Sulfate 325 mg [Feosol 325 mg] 325 mg PO UD 11/29/17 [History] Fluticasone Propionate [Flonase NASAL] 16 gm NS UD 11/29/17 [History] Ipratropium/Albuterol Sulfate [Iprat-Albut 0.5-3(2.5) mg/3 ml] 3 ml IH UD [History] Hx Tetanus, Diphtheria Vaccination/Date Given: Yes Hx Influenza Vaccination/Date Given: Yes Hx Pneumococcal Vaccination/Date Given: No Immunizations Up to Date: Yes - Review of Systems Constitutional: No Fever, No Chills Eyes: No Symptoms Ears, Nose, & Throat: No Symptoms Respiratory: No Cough, No Dyspnea Cardiac: Chest Pain, No Edema, No Syncope Abdominal/Gastrointestinal: Abdominal Pain, Nausea, No Vomiting, No Diarrhea Genitourinary Symptoms: No Dysuria Musculoskeletal: No Back Pain, No Neck Pain Skin: No Rash Neurological: No Dizziness, No Focal Weakness, No Sensory Changes Psychological: No Symptoms Endocrine: No Symptoms All Other Systems: Reviewed and Negative - Past Medical History Pertinent Past Medical History: Yes Neurological History: No Pertinent History ENT History: No Pertinent History Cardiac History: Angina, Arrhythmia, Hypertension, Other Respiratory History: CHF, COPD Endocrine Medical History: Hypothyroidism Musculoskeletal History: Arthritis, Fractures GI Medical History: No Pertinent History History: Renal Disease Psycho-Social History: No Pertinent History Male Reproductive Disorders: Prostate Problems Other Medical History: fractured left arm, fractured fingers ppm 06/2015 for atrial fib leaky valve - Past Surgical History Past Surgical History: Yes Neuro Surgical History: No Pertinent History Cardiac: Pacemaker, Other Respiratory: No Pertinent History Gastrointestinal: No Pertinent History Genitourinary: No Pertinent History Musculoskeletal: Orthopedic Surgery Male Surgical History: No Pertinent History Other Surgical History: [place] teeth out, surgery on hand - Social History Smoking Status: Former smoker Exposure to second hand smoke: No Drug Use: none Patient Lives Alone: No - Nursing Vital Signs Nursing Vital Signs: Initial Vital Signs Temperature 98.7 F 11/29/17 14:53 Pulse Rate 60 11/29/17 14:53 Respiratory Rate 20 11/29/17 14:53 Blood Pressure 115/75 11/29/17 14:53 O2 Sat by Pulse Oximetry 100 11/29/17 14:53 Pain Scale Pain Intensity 2 - Physical Exam General Appearance: no apparent distress, alert Eye Exam: PERRL/EOMI, eyes nml inspection Ears, Nose, Throat Exam: normal ENT inspection, pharynx normal, moist mucous membranes Neck Exam: normal inspection, non-tender, supple, full range of motion Respiratory Exam: normal breath sounds, lungs clear, No respiratory distress Cardiovascular Exam: regular rate/rhythm, normal heart sounds Gastrointestinal/Abdomen Exam: soft, No tenderness, No mass Back Exam: normal inspection, normal range of motion, No CVA tenderness, No vertebral tenderness Extremity Exam: normal inspection, normal range of motion, pelvis stable Neurologic Exam: alert, oriented x 3, cooperative, normal mood/affect, nml cerebellar function, sensation nml, No motor deficits Skin Exam: normal color, warm, dry SpO2: 100 Oxygen Delivery: Nasal Cannula - Course Nursing assessment & vital signs reviewed: Yes EKG Interpreted by Me: Non-specific ST Changes, Other (paced rhythm) - Radiology Exams Abdomen X-ray Interpretation: Reviewed by me, Negative Chest X-ray Interpretation: Reviewed by me (chf changes), Pneumonia Ordered Tests: Active Orders 24 hr Category Date Time Status 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 Assembler STAT Care 11/29/17 15:08 Active EKG-ER Only STAT Care 11/29/17 15:06 Active IV Insertion STAT Care 11/29/17 15:06 Active Oxygen-ED Only NASAL CANNULA 2 lpm Care 11/29/17 15:06 Active CHEST 1 VIEW (PORTABLE) Stat Exams 11/29/17 15:38 Taken KUB Stat Exams 11/29/17 15:07 Taken AMYLASE Stat Lab 11/29/17 15:00 Completed CBC W DIFF Stat Lab 11/29/17 15:00 Completed CMP Stat Lab 11/29/17 15:00 Completed LIPASE Stat Lab 11/29/17 15:00 Completed Lactic Acid Stat Lab 11/29/17 15:06 Results NT PRO BNP Stat Lab 11/29/17 15:00 Completed TROPONIN Q3H Lab 11/29/17 15:00 Completed TROPONIN Q3H Lab 11/29/17 18:15 Ordered TROPONIN Q3H Lab 11/29/17 21:15 Ordered TROPONIN Q3H Lab 11/30/17 00:15 Ordered TROPONIN Q3H Lab 11/30/17 03:15 Ordered Medication Summary Generic Name Dose Route Start Last Admin Trade Name Freq PRN Reason Stop Dose Admin Sodium Chloride 1,000 mls @ 50 mls/hr 11/29/17 15:15 11/29/17 15:28 Sodium Chloride 0.9% 1000 Ml IV 12/29/17 15:14 50 mls/hr .Q20H KHUSHBU Administration Discontinued Medications Generic Name Dose Route Start Last Admin Trade Name Freq PRN Reason Stop Dose Admin Famotidine 20 mg 11/29/17 15:06 11/29/17 15:29 Pepcid 20 Mg Vial IV 11/29/17 15:07 20 mg STAT ONE Administration Famotidine Confirm 11/29/17 15:15 Pepcid 20 Mg Vial Administered 11/29/17 15:16 Dose 20 mg IV .STK-MED ONE Ceftriaxone Sodium/Dextrose 1 g in 50 mls @ 100 mls/hr 11/29/17 15:39 15:51 Rocephin 1 Gm-D5w 50 Ml Bag IV 11/29/17 16:08 100 mls/hr STAT STA 100 mls/hr Administration Ceftriaxone Sodium/Dextrose Confirm 11/29/17 15:45 Rocephin 1 Gm-D5w 50 Ml Bag Administered 11/29/17 15:46 Dose 1 g in 50 mls @ ud IV .STK-MED ONE Metoclopramide HCl 5 mg 11/29/17 15:06 11/29/17 15:29 Reglan 10 Mg/2 Ml IV 11/29/17 15:07 5 mg STAT ONE Administration Metoclopramide HCl Confirm 11/29/17 15:16 Reglan 10 Mg/2 Ml Administered 11/29/17 15:17 Dose 10 mg .ROUTE .STK-MED ONE Lab/Rad Data: Laboratory Result Diagrams 11/29/17 15:00 11/29/17 15:00 Laboratory Results 11/29/17 11/29/17 11/29/17 Range/Units 15:06 15:00 15:00 WBC (4.0-10.5) K/mm3 RBC (4.1-5.6) M/mm3 Hgb (12.5-18.0) gm/dl Hct (42-50) % MCV (78-100) fl MCH (26-32) pg MCHC (32-36) g/dl RDW (11.5-14.0) % Plt Count (150-450) K/mm3 MPV (6-9.5) fl Gran % (36.0-66.0) % Eos # (Auto) (0-0.5) Absolute Lymphs (auto) (1.0-4.6) Absolute Monos (auto) (0.0-1.3) Lymphocytes % (24.0-44.0) % Monocytes % (0.0-12.0) % Eosinophils % (0.00-5.0) % Basophils % (0.0-0.4) % Absolute Granulocytes (1.4-6.9) Basophils # (0-0.4) Sodium 134 L (137-145) mmol/L Potassium 4.3 (3.5-5.1) mmol/L Chloride 88 L (98-107) mmol/L Carbon Dioxide 30 (22-30) mmol/L Anion Gap 20.3 H (5-15) MEQ/L BUN 88 H (9-20) mg/dL Creatinine 2.47 H (0.66-1.25) mg/dL Estimated GFR 26.5 ML/MIN Glucose 132 H (74-106) mg/dL Lactic Acid 4.1 H (0.4-2.0) Calcium 10.1 (8.4-10.2) mg/dL Total Bilirubin 1.50 H (0.2-1.3) mg/dL AST 23 (17-59) U/L ALT 20 (0-50) U/L Alkaline Phosphatase 113 (38-126) U/L Troponin I 0.035 H (0.000-0.034) ng/mL NT-Pro-B Natriuret Pep 9880 H (0-1800) pg/mL Serum Total Protein 8.3 H (6.3-8.2) g/dL Albumin 4.4 (3.5-5.0) g/dL Amylase 94 (30-110) U/L Lipase 234 (23-300) U/L 11/29/17 Range/Units 15:00 WBC 13.5 H (4.0-10.5) K/mm3 RBC 4.81 (4.1-5.6) M/mm3 Hgb 14.3 (12.5-18.0) gm/dl Hct 42.6 (42-50) % MCV 88.6 (78-100) fl MCH 29.7 (26-32) pg MCHC 33.6 (32-36) g/dl RDW 15.0 H (11.5-14.0) % Plt Count 262 (150-450) K/mm3 MPV 10.6 H (6-9.5) fl Gran % 83.7 H (36.0-66.0) % Eos # (Auto) 0.07 (0-0.5) Absolute Lymphs (auto) 1.12 (1.0-4.6) Absolute Monos (auto) 0.96 (0.0-1.3) Lymphocytes % 8.3 L (24.0-44.0) % Monocytes % 7.1 (0.0-12.0) % Eosinophils % 0.5 (0.00-5.0) % Basophils % 0.4 (0.0-0.4) % Absolute Granulocytes 11.25 H (1.4-6.9) Basophils # 0.05 (0-0.4) Sodium (137-145) mmol/L Potassium (3.5-5.1) mmol/L Chloride (98-107) mmol/L Carbon Dioxide (22-30) mmol/L Anion Gap (5-15) MEQ/L BUN (9-20) mg/dL Creatinine (0.66-1.25) mg/dL Estimated GFR ML/MIN Glucose (74-106) mg/dL Lactic Acid (0.4-2.0) Calcium (8.4-10.2) mg/dL Total Bilirubin (0.2-1.3) mg/dL AST (17-59) U/L ALT (0-50) U/L Alkaline Phosphatase (38-126) U/L Troponin I (0.000-0.034) ng/mL NT-Pro-B Natriuret Pep (0-1800) pg/mL Serum Total Protein (6.3-8.2) g/dL Albumin (3.5-5.0) g/dL Amylase (30-110) U/L Lipase (23-300) U/L - Progress Progress: improved Discussed with Dr.: Murali Jones Will see patient in: hospital (observation) Counseled pt/family regarding: lab results, diagnosis, need for follow-up, rad results - Departure Time of Disposition: 16:15 Departure Disposition: Observation Clinical Impression: Pulmonary infiltrate on radiologic exam, Chest pain, rule out acute myocardial infarction CHF (congestive heart failure), NYHA class III Qualifiers: Congestive heart failure type: combined Congestive heart failure chronicity: chronic Qualified Code(s): I50.42 - Chronic combined systolic (congestive) and diastolic (congestive) heart failure Condition: Fair Critical Care Time: Yes Critical Care Time(excluding separately billable procedures): 30-74 minutes Referrals: CANDIS MERCHANT [Primary Care Provider] - Instructions: Heart Failure, Chest Pain (DC)
[2017-11-29] MEDS: Sodium Chloride 0.9% 1000 ML 1,000 ML IV SCH (15:28)
[2017-11-29] MEDS ORDERED: ROCEPHIN 1 Gm-D5w 50 ml Bag** 1 G/50 ML IVPB IV STA (15:39)
[2017-11-29] MEDS ORDERED: ROCEPHIN 1 Gm-D5w 50 ml Bag** 1 G/50 ML IVPB IV ONE (15:45)
[2017-11-29 15:47] LABS: ALBUMIN 4.4 g/dL (3.5-5.0); ANION GAP 20.3 MEQ/L (5-15); BILIRUBIN,TOTAL 1.5 mg/dL (0.2-1.3); Calcium 10.1 mg/dL (8.4-10.2); Creatinine 1 2.47 mg/dL (0.66-1.25); Potassium 4.3 mmol/L (3.5-5.1); Total Protein 8.3 g/dL (6.3-8.2)
[2017-11-29] MEDS ORDERED: Senokot-S Tablet PO PRN (16:16)
[2017-11-29] MEDS ORDERED: MILK OF MAGNESIA 30 ML PO PRN (16:16)
[2017-11-29] MEDS ORDERED: MAALOX ES 30 ML UNIT DOSE PO PRN (16:16)
[2017-11-29] MEDS ORDERED: TYLENOL 325 MG PO PRN (16:16)
--- NOTE | 2017-11-29 17:09 | XRAY ---
Indication: Chest pain. Comparison: March 08, 2017. Portable chest again demonstrates right base infiltrate/atelectasis, chronic interstitial lung markings, cardiomegaly, and left-sided single lead pacemaker. Remaining lungs clear. Bony thorax intact again with osteopenia and degenerative changes.
--- NOTE | 2017-11-29 17:11 | XRAY ---
Indication: Abdominal pain. Comparison: March 19, 2007. KUB nonacute and nonobstructed with mild diffuse scattered colonic fecal debris. No focal bowel dilatation or large free air. Solid organs unremarkable. Osseous structures intact with progressive worsening moderate/advanced multilevel degenerative spondylosis and mild degenerative changes of both hips. Chest reported separately. Impression: Fecal stasis without obstruction.
[2017-11-29] MEDS ORDERED: Lasix 40 MG/4 ML IV ONE (18:30)
[2017-11-29 18:34] LABS: Lactic Acid 3.5 (0.4-2.0)
[2017-11-29] MEDS: Apresoline 25 MG TABLET PO SCH (21:55)
[2017-11-30] MEDS: Sodium Chloride 0.9% 1000 ML 1,000 ML IV SCH (02:07)
[2017-11-30 04:15] LABS: Lactic Acid 2.5 (0.4-2.0)
[2017-11-30] MEDS ORDERED: Robitussin-Dm Syrup PO PRN (07:21)
[2017-11-30] MEDS ORDERED: DUONEB 0.5-3 MG/3 ml Neb IH PRN (07:30)
[2017-11-30] MEDS ORDERED: Sodium Chloride 0.9% 1000 ML 1,000 ML IV SCH (08:15)
--- NOTE | 2017-11-30 08:15 | PCM.HP ---
History of Present Illness - Chief Complaint Chief Complaint: chest pain r/o MS, CHF, pneumonia Date: 11/30/17 History of Present Illness: is a 87 year old male. who has been having increased nausea and began feeling very bad and felt a tightness he thought in his chest. He called his daughter who brought him to the ED. He has no pain in his chest now and had been having difficutly with chronic indigestion and reflux with nausea prior to this much worse over the last 1 week at assisted living. He has not had any recent med changes. He has not had any swelling recently. He had to reschedule his appointment with Dr. Gold lozoya malt loader for next month and had a good check up with stripper shovel operator Dr. Ly last Thursday. - Review of Systems Constitutional: No Fever, No Chills Eyes: No Symptoms Ears, Nose, & Throat: No Symptoms Respiratory: No Cough, No Short Of Breath Cardiac: No Chest Pain, No Edema, No Palpitations, No Syncope Abdominal/Gastrointestinal: Abdominal Pain, Nausea, Vomiting, No Diarrhea Genitourinary Symptoms: No Dysuria Musculoskeletal: No Back Pain, No Neck Pain Skin: No Rash Neurological: No Dizziness, No Focal Weakness, No Sensory Changes Psychological: No Symptoms Endocrine: No Symptoms Hematologic/Lymphatic: No Symptoms Immunological/Allergic: No Symptoms Medications & Allergies Home Medications: Home Medication List Levothyroxine Sodium 75 Mcg [Synthroid 75 Mcg] 75 mcg PO DAILY 06/07/14 [ History Confirmed 11/29/17] Furosemide 40 mg PO DAILY 05/31/15 [History Confirmed 11/29/17] Tamsulosin HCl 0.4 mg [Flomax 0.4 MG] 0.4 mg PO DAILY 05/31/15 [History Confirmed 11/29/17] Carvedilol 12.5 mg [Coreg 12.5 mg] 12.5 mg PO BID 02/10/16 [History Confirmed 11/29/17] Aspirin [Aspir-Low] 81 mg PO DAILY 03/08/17 [History Confirmed 11/29/17] HydrALAzine HCL 25 MG TAB [Apresoline 25 MG TABLET] 12.5 mg PO TID #90 tablet 03/12/17 [Rx Confirmed 11/29/17] Potassium Chloride 10 Meq Tab* [Klor Con 10 MEQ] 10 meq PO UD 04/17/17 [ History Confirmed 11/29/17] Acetaminophen 325 mg [Tylenol 325 mg] 650 mg PO Q4HPRN PRN 11/29/17 [ History Confirmed 11/29/17] Ferrous Sulfate 325 mg [Feosol 325 mg] 325 mg PO DAILY 11/29/17 [History Confirmed 11/29/17] Fluticasone Propionate [Flonase NASAL] 16 gm NS UD 11/29/17 [History Confirmed 11/29/17] Guaifenesin/Dextromethorphan [Robitussin Cough-Chest Dm Liq] 5 ml PO Q4HPRN PRN 11/29/17 [History Confirmed 11/29/17] Ipratropium/Albuterol Sulfate [Iprat-Albut 0.5-3(2.5) mg/3 ml] 3 ml IH UD [History Confirmed 11/29/17] Potassium Chloride 20 Meq [Klor-Con 20 MEQ] 20 meq PO UD 11/29/17 [History Confirmed 11/29/17] Allergies/Adverse Reactions: Allergies Allergy/AdvReac Type Severity Reaction Status Date / Time No Known Drug Allergies Allergy Verified 11/29/17 15:08 - Past Medical History Past Medical History: Yes Neurological History: No Pertinent History ENT History: No Pertinent History Cardiac History: Angina, Arrhythmia, Hypertension, Other Respiratory History: CHF, COPD Endocrine Medical History: Hypothyroidism Musculoskelatal History: Arthritis, Fractures GI Medical History: No Pertinent History History: Renal Disease Pyscho-Social History: No Pertinent History Male Reproductive Disorders: Prostate Problems Comment: fractured left arm, fractured fingers ppm 06/2015 for atrial fib leaky valve - Past Surgical History Past Surgical History: Yes Neuro Surgical History: No Pertinent History Cardiac History: Pacemaker, Other Respiratory Surgery: No Pertinent History GI Surgical History: No Pertinent History Genitourinary Surgical Hx: No Pertinent History Musculskeletal Surgical Hx: Orthopedic Surgery Male Surgical History: No Pertinent History Other Surgical History: [place] teeth out, surgery on hand - Social History Smoking Status: Former smoker Exposure to second hand smoke: No Alcohol: None Drug Use: none - Physical Exam Vital Signs: Vital Signs - 24 hr Temp Pulse Pulse Resp BP Pulse Ox 11/30/17 08:00 98.2 F 69 18 164/65 94 L 11/30/17 06:36 94 L 11/30/17 04:00 97.9 F 61 22 129/65 97 11/30/17 03:00 97 11/29/17 23:55 98.2 F 67 20 111/56 97 11/29/17 23:10 60 22 96 11/29/17 20:17 98 11/29/17 20:05 97.7 F 63 22 113/57 98 11/29/17 17:40 97.9 F 63 20 115/57 92 L 11/29/17 16:47 97.9 F 63 20 115/57 92 L 11/29/17 16:45 97.9 F 63 20 115/57 92 L 11/29/17 16:17 92 L 11/29/17 16:16 100 11/29/17 15:52 72 20 96 11/29/17 15:33 60 H 130/72 97 11/29/17 14:53 98.7 F 60 60 20 115/75 100 Oxygen-Last 24 hours O2 Percentage 4 Liters = 36% O2 Percentage 5 Liters = 40% O2 Percentage 5 Liters = 40% O2 Percentage 5 Liters = 40% O2 Percentage 5 Liters = 40% O2 Percentage 5 Liters = 40% O2 Percentage 5 Liters = 40% O2 Percentage 5 Liters = 40% O2 Percentage 5 Liters = 40% O2 Percentage 5 Liters = 40% O2 Percentage 5 Liters = 40% General Appearance: no apparent distress, obese Neurologic Exam: alert, oriented x 3, cooperative, normal mood/affect, other ( walks with walker) Eye Exam: PERRL/EOMI, eyes nml inspection Ears, Nose, Throat Exam: normal ENT inspection, pharynx normal, moist mucous membranes Neck Exam: normal inspection, non-tender, supple, full range of motion Respiratory Exam: normal breath sounds, lungs clear, No respiratory distress Cardiovascular Exam: regular rate/rhythm, normal peripheral pulses, murmur, No edema Gastrointestinal/Abdomen Exam: soft, normal bowel sounds, No tenderness, No mass Back Exam: normal inspection, normal range of motion, No CVA tenderness, No vertebral tenderness Extremity Exam: normal inspection, normal range of motion, pelvis stable Skin Exam: normal color, warm, dry, No rash Lymphatic Exam: No adenopathy Results - Labs Lab/Micro Results: Lab Results-Last 24 Hours 11/29/17 11/29/17 11/29/17 Range/Units 18:15 18:30 21:30 Lactic Acid 3.5 H (0.4-2.0) Troponin I 0.035 H 0.042 H* (0.000-0.034) ng/mL Triglycerides (30-150) mg/dL Cholesterol (50-200) mg/dL LDL Cholesterol (30-100) mg/dL HDL Cholesterol (40-60) mg/dL Heart Disease Risk Ratio 11/30/17 11/30/17 11/30/17 Range/Units 00:15 03:45 03:45 Lactic Acid (0.4-2.0) Troponin I 0.046 H* 0.046 H* (0.000-0.034) ng/mL Triglycerides 80 (30-150) mg/dL Cholesterol 121 (50-200) mg/dL LDL Cholesterol 56 (30-100) mg/dL HDL Cholesterol 30 L (40-60) mg/dL Heart Disease Risk Ratio 4.0 11/30/17 Range/Units 04:12 Lactic Acid 2.5 H (0.4-2.0) Troponin I (0.000-0.034) ng/mL Triglycerides (30-150) mg/dL Cholesterol (50-200) mg/dL LDL Cholesterol (30-100) mg/dL HDL Cholesterol (40-60) mg/dL Heart Disease Risk Ratio - Other Procedures and Tests Respiratory Therapy 11/29/17 17:00 Oxygen NASAL CANNULA 5 lpm 11/30/17 08:07 Respiratory Nebulizer 12/01/17 05:00 EKG ROUTINE 12/02/17 05:00 EKG ROUTINE Assessment/Plan (1) Chest pain, rule out acute myocardial infarction Current Visit: Yes Status: Acute Assessment & Plan: it appears this is due to his combination of reflux and nausea associated with his uremia he has severe and worsening uremia secondary to his worsening heart failure and renal insufficiency he has no edema peripherally and no pulmonary edema noted will continue gentle iv fluids and hold lasix monitor fluid status closely the troponin elevation is new but he is asymptomatic as far as chest pain goes and likely contributions are his severe renal and history of heart failure continue observation on telemetry ekg's show no change but has hx of LBBB Code(s): R07.9 - CHEST PAIN, UNSPECIFIED (2) Elevated troponin Current Visit: Yes Status: Acute Code(s): R74.8 - ABNORMAL LEVELS OF OTHER SERUM ENZYMES (3) Abdominal pain Current Visit: Yes Status: Acute Code(s): R10.9 - UNSPECIFIED ABDOMINAL PAIN (4) Uremia of renal origin Current Visit: Yes Status: Acute Code(s): N19 - UNSPECIFIED KIDNEY FAILURE (5) CKD (chronic kidney disease) Current Visit: Yes Status: Chronic Qualifiers: Chronic kidney disease stage: stage 3 (moderate) Qualified Code(s): N18.3 - Chronic kidney disease, stage 3 (moderate) Code(s): N18.9 - CHRONIC KIDNEY DISEASE, UNSPECIFIED (6) CHF (congestive heart failure), NYHA class III Current Visit: Yes Status: Acute Qualifiers: Congestive heart failure type: systolic Congestive heart failure chronicity : chronic Qualified Code(s): I50.22 - Chronic systolic (congestive) heart failure Code(s): I50.9 - HEART FAILURE, UNSPECIFIED (7) Chronic hypoxemic respiratory failure Current Visit: Yes Status: Chronic
[2017-11-30] MEDS ORDERED: ECOTRIN 81 MG PO SCH (10:00)
[2017-11-30] MEDS ORDERED: ROCEPHIN 1 Gm-D5w 50 ml Bag** 1 G/50 ML IVPB IV SCH (10:00)
[2017-11-30] MEDS ORDERED: Lasix 40 MG/4 ML IV SCH (10:00)
[2017-11-30] MEDS ORDERED: Ecotrin 325 MG PO SCH (10:00)
[2017-11-30] MEDS ORDERED: Klor Con 10 MEQ PO SCH (10:00)
[2017-11-30] MEDS: Flomax 0.4 MG PO SCH (10:36)
[2017-11-30] MEDS: Apresoline 25 MG TABLET PO SCH ×3 (10:36→21:34)
[2017-11-30] MEDS: COREG 12.5 MG PO SCH ×2 (10:36→21:35)
[2017-11-30] MEDS: SYNTHROID 75 MCG PO SCH (10:36)
[2017-11-30] MEDS: Protonix 40MG Tablet PO SCH (10:36)
[2017-11-30] MEDS: FEOSOL 325 MG PO SCH (10:36)
[2017-11-30] MEDS: ENOXAPARIN SODIUM SQ SCH (10:37)
[2017-11-30] MEDS: Flonase NASAL NS SCH (10:37)
[2017-11-30] MEDS: Zofran 4 MG/2 ML VIAL IV PRN ×2 (13:57→20:13)
[2017-11-30] MEDS ORDERED: Phenergan 25 MG INJ IV PRN (20:48)
[2017-11-30] MEDS: Carafate SUSPENSION 1000 MG/10 ML PO SCH (21:56)
[2017-12-01 06:21] LABS: BASOPHIL % 0.5 % (0.0-0.4); Basophil (Absolute #) 0.04 (0-0.4); Eosinophil % 1.1 % (0.00-5.0); Eosinophil (Absolute #) 0.09 (0-0.5); Granulocyte Absolute (ANC) 6.37 (1.4-6.9); Granulocytes % 74.5 % (36.0-66.0); Hematocrit 37.4 % (42-50); Hemoglobin 12.5 gm/dl (12.5-18.0); Lymphocyte (Absolute #) 1.11 (1.0-4.6); Mean Cell Volume 88.4 fl (78-100); Mean Corpuscular Hemoglobin 29.6 pg (26-32); Mean Corpuscular Hgb Concent. 33.4 g/dl (32-36); Mean Platelet Volume 10.5 fl (6-9.5); Monocyte (Absolute #) 0.93 (0.0-1.3); Monocytes % 10.9 % (0.0-12.0); Platelet Count 199 K/mm3 (150-450); Red Blood Count 4.23 M/mm3 (4.1-5.6); Red Cell Distribution Width 14.9 % (11.5-14.0); White Blood Count 8.5 K/mm3 (4.0-10.5)
[2017-12-01 06:28] LABS: ALBUMIN 3.5 g/dL (3.5-5.0); ANION GAP 14.3 MEQ/L (5-15); Creatinine 1 2.36 mg/dL (0.66-1.25); Potassium 3.1 mmol/L (3.5-5.1); Total Protein 6.7 g/dL (6.3-8.2)
[2017-12-01] MEDS ORDERED: Klor Con 10 MEQ PO ONE (08:19)
--- NOTE | 2017-12-01 08:19 | PCM.DCORD ---
- Discharge Discharge Date: 12/01/17 Disposition: Home, Self-Care Condition: Fair Prescriptions: New Sucralfate 1000 mg/10 ml [Carafate SUSPENSION 1000 MG/10 ML] 1,000 mg PO ACHS 7 Days #280 ml PANTOPRAZOLE 40 mg Tablet [Protonix 40MG Tablet] 40 mg PO DAILY #30 tab Continue Levothyroxine Sodium 75 Mcg [Synthroid 75 Mcg] 75 mcg PO DAILY Tamsulosin HCl 0.4 mg [Flomax 0.4 MG] 0.4 mg PO DAILY Carvedilol 12.5 mg [Coreg 12.5 mg] 12.5 mg PO BID Aspirin [Aspir-Low] 81 mg PO DAILY HydrALAzine HCL 25 MG TAB [Apresoline 25 MG TABLET] 12.5 mg PO TID #90 tablet Ipratropium/Albuterol Sulfate [Iprat-Albut 0.5-3(2.5) mg/3 ml] 3 ml IH UD Fluticasone Propionate [Flonase NASAL] 16 gm NS UD Acetaminophen 325 mg [Tylenol 325 mg] 650 mg PO Q4HPRN PRN PRN Reason: pain or temp Guaifenesin/Dextromethorphan [Robitussin Cough-Chest Dm Liq] 5 ml PO Q4HPRN PRN PRN Reason: Cough Discontinued Furosemide 40 mg PO DAILY Potassium Chloride 10 Meq Tab* [Klor Con 10 MEQ] 10 meq PO UD Ferrous Sulfate 325 mg [Feosol 325 mg] 325 mg PO DAILY Potassium Chloride 20 Meq [Klor-Con 20 MEQ] 20 meq PO UD Follow up with: CANDIS MERCHANT [Primary Care Provider] - 1 Week
[2017-12-01] MEDS: Carafate SUSPENSION 1000 MG/10 ML PO SCH (09:16)
[2017-12-01] MEDS ORDERED: Klor Con 10 MEQ PO SCH (10:00)
[2017-12-01] MEDS: Flonase NASAL NS SCH (10:39)
[2017-12-01] MEDS: COREG 12.5 MG PO SCH (10:39)
[2017-12-01] MEDS: FEOSOL 325 MG PO SCH (10:39)
[2017-12-01] MEDS: SYNTHROID 75 MCG PO SCH (10:39)
[2017-12-01] MEDS: Flomax 0.4 MG PO SCH (10:39)
[2017-12-01] MEDS: Apresoline 25 MG TABLET PO SCH (10:39)
[2017-12-01] MEDS: Protonix 40MG Tablet PO SCH (10:39)
[2017-12-01] MEDS: ENOXAPARIN SODIUM SQ SCH (10:39)
[2017-12-01 12:07] VITALS: BP 124/64; PULSE 70; O2SAT 96
[2017-12-02] MEDS ORDERED: Klor Con 10 MEQ PO SCH (10:00)
[2017-12-05] MEDS ORDERED: Klor Con 10 MEQ PO SCH (10:00)
--- NOTE | 2017-12-06 22:33 | PCM.DS ---
Discharge Summary Date of Admission: 11/29/17 16:34 Date of Discharge: 12/01/17 Admitting Physician: PRITESH CHU Primary Care Provider: CANDIS MERCHANT Allergies Allergies No Known Drug Allergies Allergy (Verified 11/29/17 15:08) Hospital Summary - Hospital Course Hospital Course: Mr. Mathew has a complicated medical history with severe renal failure and chronic congestive heart failure. He was previously having significant swelling of his extremities but for the last few months has had no swelling but increased heartburn and indigestion and then developed feeling of nausea and trying to vomit but would have pain in the chest and spasm with this and his daughter brought him to ED where he was found to have significnat uremia up to the 80's. He also had very mild elevated troponin and a chronic lbbb. He was given ppi and gentle hydartion and subsequent lasix was held and he did not have much change in uremia on day 1 but was having improved symptoms. He had no further chest pain after the first initial spasm with trying to vomit and further had epigastric dycomfort with nausea. no shortness of breath. He will have his diuretics decreased and very close monitoring of weight and swelling and shortness of breath was discussed. 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 - Vitals & Intake/Output Vital Signs: Vital Signs Temperature 97.9 F 12/01/17 12:05 Pulse Rate 70 12/01/17 12:05 Respiratory Rate 20 12/01/17 12:05 Blood Pressure 124/64 12/01/17 12:05 O2 Sat by Pulse Oximetry 96 12/01/17 12:05 Oxygen-Last Documented O2 Percentage 5 Liters = 40% - Lab Result Diagrams: 12/01/17 05:30 12/01/17 05:30 - Procedures and Test Procedures and Tests throughout Hospitalization: Therapy Orders & Screens 11/29/17 17:00 Oxygen NASAL CANNULA 5 lpm Comment: home oxygen Diagnosis: chest pain r/o AK, CHF, pneumonia 11/29/17 18:35 RT Screen per Nursing Assess ONCE Comment: Protocol Order Physician Instructions: Greater than 3 points order RT Admission Screen Reason For Exam: Triggered on Admission Diagnosis: chest pain r/o AK, CHF, pneumonia Diagnosis: chest pain r/o AK, CHF, pneumonia Pneumonia: Yes Home O2: Yes Asthma: No CHF: Yes Home CPAP/BIPAP: No Home Nebs/MDI: Yes Total Points: 16 ST Screen per Nursing Assess once Comment: Protocol Order Physician Instructions: Greater than [address] Admission Screening Reason For Exam: Triggered on Admission Diagnosis: chest pain r/o AK, CHF, pneumonia CVA/Dyshpagia/Aphasia: Yes Cognitive Deficits: No Dehydration/Nutrition Deficit: No Reflux: Yes Oral-Motor Difficulties: No Pneumonia: Yes Half-Way Resident: No Total Points: 13 11/29/17 23:00 EKG ROUTINE Comment: Diagnosis: chest pain r/o AK, CHF, pneumonia 11/30/17 05:00 EKG ROUTINE Comment: Diagnosis: chest pain r/o AK, CHF, pneumonia 11/30/17 08:07 Respiratory Nebulizer Comment: DUONEB Q4PRN Diagnosis: chest pain r/o AK, CHF, pneumonia 12/01/17 05:00 EKG ROUTINE Comment: Diagnosis: chest pain r/o AK, CHF, pneumonia 12/02/17 05:00 EKG ROUTINE Comment: Diagnosis: chest pain r/o AK, CHF, pneumonia Discharge Exam General Appearance: no apparent distress, alert Neurologic Exam: alert, oriented x 3, cooperative, normal mood/affect, nml cerebellar function, sensation nml, No motor deficits Skin Exam: normal color, warm, dry Eye Exam: PERRL, EOMI, eyes nml inspection Ears, Nose, Throat Exam: normal ENT inspection, pharynx normal, moist mucous membranes Neck Exam: normal inspection, non-tender, supple, full range of motion Respiratory Exam: normal breath sounds, lungs clear, No respiratory distress Cardiovascular Exam: regular rate/rhythm, normal heart sounds Gastrointestinal/Abdomen Exam: soft, tenderness (epigastric), No mass Extremity Exam: normal inspection Back Exam: normal inspection, No CVA tenderness, No vertebral tenderness Male Genitalia Exam: deferred Rectal Exam: deferred Final Diagnosis/Problem List - Final Discharge Diagnosis/Problem (1) Chest pain, rule out acute myocardial infarction Status: Acute (2) Elevated troponin Status: Acute (3) Abdominal pain Status: Acute (4) Uremia of renal origin Status: Acute (5) CKD (chronic kidney disease) Status: Chronic (6) CHF (congestive heart failure), NYHA class III Status: Acute (7) Chronic hypoxemic respiratory failure Status: Chronic - Discharge Discharge Date: 12/01/17 Disposition: HOME HEALTH SERVICE Condition: Fair Prescriptions: New Sucralfate 1000 mg/10 ml [Carafate SUSPENSION 1000 MG/10 ML] 1,000 mg PO ACHS 7 Days #280 ml PANTOPRAZOLE 40 mg Tablet [Protonix 40MG Tablet] 40 mg PO DAILY #30 tab Continue Levothyroxine Sodium 75 Mcg [Synthroid 75 Mcg] 75 mcg PO DAILY Tamsulosin HCl 0.4 mg [Flomax 0.4 MG] 0.4 mg PO DAILY Carvedilol 12.5 mg [Coreg 12.5 mg] 12.5 mg PO BID Aspirin [Aspir-Low] 81 mg PO DAILY HydrALAzine HCL 25 MG TAB [Apresoline 25 MG TABLET] 12.5 mg PO TID #90 tablet Ipratropium/Albuterol Sulfate [Iprat-Albut 0.5-3(2.5) mg/3 ml] 3 ml IH UD Fluticasone Propionate [Flonase NASAL] 16 gm NS UD Acetaminophen 325 mg [Tylenol 325 mg] 650 mg PO Q4HPRN PRN PRN Reason: pain or temp Guaifenesin/Dextromethorphan [Robitussin Cough-Chest Dm Liq] 5 ml PO Q4HPRN PRN PRN Reason: Cough Discontinued Furosemide 40 mg PO DAILY Potassium Chloride 10 Meq Tab* [Klor Con 10 MEQ] 10 meq PO UD Ferrous Sulfate 325 mg [Feosol 325 mg] 325 mg PO DAILY Potassium Chloride 20 Meq [Klor-Con 20 MEQ] 20 meq PO UD Instructions: Acid Reflux (Gastroesophageal Reflux Disease), Adult (DC), Chest Pain (DC) Additional Instructions: [facility] WILL CALL TO ARRANGE FIRST VISIT. Follow up with: CANDIS MERCHANT [Primary Care Provider] - 12/09/17 11:00 am Forms: Discharge Instructions
== END 2017-12-01 12:50 | disposition home health service (06) ==
LOC: ED 14:49 → MED SURG 16:34
PROVIDERS: ADMIT Family Medicine; ATTEND Family Medicine
DX: R07.89 Other chest pain (principal); R79.89 Other specified abnormal findings of blood chemistry; R10.9 Unspecified abdominal pain; R39.2 Extrarenal uremia; I12.9 Hypertensive chronic kidney disease with stage 1 through stage 4 chronic kidney disease, or unspecified chronic kidney disease; N18.3 Chronic kidney disease, stage 3 (moderate); I50.22 Chronic systolic (congestive) heart failure; J96.11 Chronic respiratory failure with hypoxia; M19.90 Unspecified osteoarthritis, unspecified site; E03.9 Hypothyroidism, unspecified; J44.9 Chronic obstructive pulmonary disease, unspecified; Z79.899 Other long term (current) drug therapy; Z95.0 Presence of cardiac pacemaker; Z87.891 Personal history of nicotine dependence
CPT/HCPCS: 36000; 36415; 71045; 74018; 80053; 80061; 82150; 83605; 83690; 83721; 83880; 84484; 85025; 93005; 93041; 93268; 94760; 96365; 96374; 96375; 99285; G0378; J0696; J1650; J1940; J2405; A9270-GY

== ENCOUNTER 2018-02-16 01:23 | Inpatient (IN) | payer MEDICARE ==
--- NOTE | 2018-02-16 01:39 | ERPHSYRPT ---
- History of Present Illness Time Seen by Provider: 02/16/18 01:29 Historian: patient, family (daughter), EMS Exam Limitations: no limitations Physician History: Patient is an 87-year-old male with his daughter brought in by ambulance from a local senior care where he states he has had abdominal pain with nausea for the last 4 hours. He had diarrhea about 4 or 5 days ago that has resolved. He denies vomiting. He denies chest pain or shortness of breath. He denies fever. His past medical history is significant for cardiac pacemaker, hypertension, congestive heart failure, and COPD. Pt is DNR. Timing/Duration: hour(s) (4), sudden Activities at Onset: none Quality: pressure Abdominal Pain Onset Location: generalized abdomen Pain Radiation: no radiation Severity of Pain-Max: severe Severity of Pain-Current: severe Modifying Factors: Improves With: nothing Associated Symptoms: back (back pain), nausea Previous symptoms: no prior history Allergies/Adverse Reactions: No Known Drug Allergies Allergy (Verified 02/16/18 02:23) Home Medications: Levothyroxine Sodium 75 Mcg [Synthroid 75 Mcg] 75 mcg PO DAILY 06/07/14 [ History] Tamsulosin HCl 0.4 mg [Flomax 0.4 MG] 0.4 mg PO DAILY 05/31/15 [History] Carvedilol 12.5 mg [Coreg 12.5 mg] 12.5 mg PO BID 02/10/16 [History] Aspirin [Aspir-Low] 81 mg PO DAILY 03/08/17 [History] Acetaminophen 325 mg [Tylenol 325 mg] 650 mg PO Q4HPRN PRN 11/29/17 [ History] Fluticasone Propionate [Flonase NASAL] 16 gm NS UD 11/29/17 [History] Guaifenesin/Dextromethorphan [Robitussin Cough-Chest Dm Liq] 5 ml PO Q4HPRN PRN 11/29/17 [History] Ipratropium/Albuterol Sulfate [Iprat-Albut 0.5-3(2.5) mg/3 ml] 3 ml IH UD [History] Hx Tetanus, Diphtheria Vaccination/Date Given: Yes Hx Influenza Vaccination/Date Given: Yes Hx Pneumococcal Vaccination/Date Given: No - Review of Systems Constitutional: No Fever, No Chills Eyes: No Symptoms Ears, Nose, & Throat: No Symptoms Respiratory: No Cough, No Dyspnea Cardiac: No Chest Pain, No Edema, No Syncope Abdominal/Gastrointestinal: Abdominal Pain, Nausea, No Vomiting, No Diarrhea Genitourinary Symptoms: No Symptoms Musculoskeletal: Back Pain Skin: No Rash Neurological: No Dizziness, No Focal Weakness, No Sensory Changes Psychological: No Symptoms Endocrine: No Symptoms Hematologic/Lymphatic: No Symptoms Immunological/Allergic: No Symptoms All Other Systems: Reviewed and Negative - Past Medical History Pertinent Past Medical History: Yes Neurological History: No Pertinent History ENT History: No Pertinent History Cardiac History: Angina, Arrhythmia, Hypertension, Other Respiratory History: CHF, COPD Endocrine Medical History: Hypothyroidism Musculoskeletal History: Arthritis, Fractures GI Medical History: No Pertinent History History: Renal Disease Psycho-Social History: No Pertinent History Male Reproductive Disorders: Prostate Problems Other Medical History: fractured left arm, fractured fingers ppm 06/2015 for atrial fib leaky valve - Past Surgical History Past Surgical History: Yes Neuro Surgical History: No Pertinent History Cardiac: Pacemaker, Other Respiratory: No Pertinent History Gastrointestinal: No Pertinent History Genitourinary: No Pertinent History Musculoskeletal: Orthopedic Surgery Male Surgical History: No Pertinent History Other Surgical History: [place] teeth out, surgery on hand - Social History Smoking Status: Former smoker Exposure to second hand smoke: No Drug Use: none Patient Lives Alone: No - Nursing Vital Signs Nursing Vital Signs: Initial Vital Signs Temperature 99.2 F 02/16/18 01:32 Pulse Rate 66 02/16/18 01:32 Respiratory Rate 28 H 02/16/18 01:32 Blood Pressure 104/53 02/16/18 01:32 O2 Sat by Pulse Oximetry 93 L 02/16/18 01:32 Pain Scale Pain Intensity 7 - Physical Exam General Appearance: moderate distress Eye Exam: PERRL/EOMI, eyes nml inspection Ears, Nose, Throat Exam: normal ENT inspection, pharynx normal, moist mucous membranes Neck Exam: normal inspection, non-tender, supple, full range of motion Respiratory Exam: normal breath sounds, lungs clear, No respiratory distress Cardiovascular Exam: normal heart sounds, irregular Gastrointestinal/Abdomen Exam: tenderness (severe tenderness of general abd), distention Rectal Exam: not done Back Exam: normal inspection, normal range of motion, No CVA tenderness, No vertebral tenderness Extremity Exam: normal inspection, normal range of motion, pelvis stable Neurologic Exam: alert, oriented x 3, cooperative, normal mood/affect, nml cerebellar function, sensation nml, No motor deficits Skin Exam: normal color, warm, dry SpO2 Interpretation: normal - Course EKG Interpreted by Me: RATE, Sinus Rhythm (paced) - CT Exams Abdomen/Pelvis CT Interpretation: Discussed w/radiologist (per Dr Henderson), Other (severe kuhn colitis) Ordered Tests: Active Orders 24 hr Category Date Time Status Security Systems Administrator STAT Care 02/16/18 05:41 Active EKG-ER Only STAT Care 02/16/18 01:42 Active IV Insertion STAT Care 02/16/18 01:42 Active IV Insertion-2nd Peripheral STAT Care 02/16/18 05:40 Active Pulse Oximetry (ED) STAT Care 02/16/18 05:40 Active ABDOMEN AND PELVIS W/0 CONTRAS [CT] Stat Exams 02/16/18 01:43 Taken AMYLASE Stat Lab 02/16/18 02:31 Completed BLOOD CULTURE Stat Lab 02/16/18 05:50 Received CBC W DIFF Stat Lab 02/16/18 02:31 Completed CMP Stat Lab 02/16/18 02:31 Completed LIPASE Stat Lab 02/16/18 02:31 Completed Lactic Acid Stat Lab 02/16/18 02:30 Completed Lactic Acid Stat Lab 02/16/18 05:20 Results TROPONIN Q3H Lab 02/16/18 02:31 Completed TROPONIN Q3H Lab 02/16/18 04:48 Completed TROPONIN Q3H Lab 02/16/18 07:45 Ordered TROPONIN Q3H Lab 02/16/18 10:45 Ordered TROPONIN Q3H Lab 02/16/18 13:45 Ordered UA W/RFX UR CULTURE Stat Lab 02/16/18 01:44 Uncollected Medication Summary Generic Name Dose Route Start Last Admin Trade Name Freq PRN Reason Stop Dose Admin Sodium Chloride 1,000 mls @ 999 mls/hr 02/16/18 05:45 Sodium Chloride 0.9% 1000 Ml IV 02/16/18 08:45 .Q1H1M KHUSHBU Ampicillin Sodium/Sulbactam Sodium 3 gm in 100 mls @ 200 mls/hr 02/16/18 05: 40 Unasyn 3gm / Nacl 100ml IV 02/16/18 06:09 STAT STA Discontinued Medications Generic Name Dose Route Start Last Admin Trade Name Dominga PRN Reason Stop Dose Admin Famotidine 20 mg 02/16/18 01:42 02/16/18 02:07 Pepcid 20 Mg Vial IV 02/16/18 01:43 20 mg STAT ONE Administration Famotidine Confirm 02/16/18 02:05 Pepcid 20 Mg Vial Administered 02/16/18 02:06 Dose 20 mg IV .STK-MED ONE Sodium Chloride 1,000 mls @ 999 mls/hr 02/16/18 03:23 02/16/18 03:37 Sodium Chloride 0.9% 1000 Ml IV 02/16/18 04:23 999 mls/hr .Q1H1M STA Administration Sodium Chloride Confirm 02/16/18 03:34 Sodium Chloride 0.9% 1000 Ml Administered 02/16/18 03:35 Dose 1,000 mls @ ud .ROUTE .STK-MED ONE Morphine Sulfate 4 mg 02/16/18 05:04 02/16/18 05:11 Morphine Sulfate 4 Mg Inj IV 02/16/18 05:05 4 mg STAT ONE Administration Morphine Sulfate Confirm 02/16/18 05:10 Morphine Sulfate 4 Mg Inj Administered 02/16/18 05:11 Dose 4 mg .ROUTE .STK-MED ONE Ondansetron HCl 4 mg 02/16/18 01:42 02/16/18 02:07 Zofran 4 Mg/2 Ml Vial IV 02/16/18 01:43 4 mg STAT ONE Administration Ondansetron HCl Confirm 02/16/18 02:05 Zofran 4 Mg/2 Ml Vial Administered 02/16/18 02:06 Dose 4 mg .ROUTE .STK-MED ONE Lab/Rad Data: Laboratory Result Diagrams 02/16/18 02:31 02/16/18 02:31 Laboratory Results 02/16/18 02/16/18 02/16/18 Range/Units 05:20 04:48 02:31 WBC (4.0-10.5) K/mm3 RBC (4.1-5.6) M/mm3 Hgb (12.5-18.0) gm/dl Hct (42-50) % MCV (78-100) fl MCH (26-32) pg MCHC (32-36) g/dl RDW (11.5-14.0) % Plt Count (150-450) K/mm3 MPV (6-9.5) fl Gran % (36.0-66.0) % Eos # (Auto) (0-0.5) Absolute Lymphs (auto) (1.0-4.6) Absolute Monos (auto) (0.0-1.3) Lymphocytes % (24.0-44.0) % Monocytes % (0.0-12.0) % Eosinophils % (0.00-5.0) % Basophils % (0.0-0.4) % Absolute Granulocytes (1.4-6.9) Basophils # (0-0.4) Sodium (137-145) mmol/L Potassium (3.5-5.1) mmol/L Chloride (98-107) mmol/L Carbon Dioxide (22-30) mmol/L Anion Gap (5-15) MEQ/L BUN (9-20) mg/dL Creatinine (0.66-1.25) mg/dL Estimated GFR ML/MIN Glucose (74-106) mg/dL Lactic Acid 6.0 H (0.4-2.0) Calcium (8.4-10.2) mg/dL Total Bilirubin (0.2-1.3) mg/dL AST (17-59) U/L ALT (0-50) U/L Alkaline Phosphatase (38-126) U/L Troponin I 0.066 H* 0.064 H* (0.000-0.034) ng/mL Serum Total Protein (6.3-8.2) g/dL Albumin (3.5-5.0) g/dL Amylase (30-110) U/L Lipase (23-300) U/L 02/16/18 02/16/18 02/16/18 Range/Units 02:31 02:31 02:30 WBC 8.5 (4.0-10.5) K/mm3 RBC 4.83 (4.1-5.6) M/mm3 Hgb 13.5 (12.5-18.0) gm/dl Hct 41.6 L (42-50) % MCV 86.1 (78-100) fl MCH 28.0 (26-32) pg MCHC 32.5 (32-36) g/dl RDW 18.9 H (11.5-14.0) % Plt Count 316 (150-450) K/mm3 MPV 10.1 H (6-9.5) fl Gran % 82.4 H (36.0-66.0) % Eos # (Auto) 0.01 (0-0.5) Absolute Lymphs (auto) 0.90 L (1.0-4.6) Absolute Monos (auto) 0.57 (0.0-1.3) Lymphocytes % 10.6 L (24.0-44.0) % Monocytes % 6.7 (0.0-12.0) % Eosinophils % 0.1 (0.00-5.0) % Basophils % 0.2 (0.0-0.4) % Absolute Granulocytes 7.02 H (1.4-6.9) Basophils # 0.02 (0-0.4) Sodium 135 L (137-145) mmol/L Potassium 3.3 L (3.5-5.1) mmol/L Chloride 91 L (98-107) mmol/L Carbon Dioxide 31 H (22-30) mmol/L Anion Gap 16.3 H (5-15) MEQ/L BUN 82 H (9-20) mg/dL Creatinine 2.61 H (0.66-1.25) mg/dL Estimated GFR 24.8 ML/MIN Glucose 142 H (74-106) mg/dL Lactic Acid 5.2 H (0.4-2.0) Calcium 9.0 (8.4-10.2) mg/dL Total Bilirubin 1.80 H (0.2-1.3) mg/dL AST 19 (17-59) U/L ALT 17 (0-50) U/L Alkaline Phosphatase 102 (38-126) U/L Troponin I (0.000-0.034) ng/mL Serum Total Protein 6.6 (6.3-8.2) g/dL Albumin 3.5 (3.5-5.0) g/dL Amylase 82 (30-110) U/L Lipase 199 (23-300) U/L - Progress Progress Note: 02/16/18 06:09 Pt's condition has worsened. Discussed with : [place] (Cierra declines to see pt for surgery due to DNR.), August Will see patient in: hospital (full admit) Counseled pt/family regarding: lab results, diagnosis, rad results - Departure Time of Disposition: 06:10 Departure Disposition: In-patient Admission (Dr delatorre for Dr Beltran) Clinical Impression: Colitis presumed infectious, Sepsis Condition: Serious Critical Care Time: No Referrals: CRISTI LOERA [Primary Care Provider] -
[2018-02-16] MEDS ORDERED: Zofran 4 MG/2 ML VIAL IV ONE (01:42)
[2018-02-16] MEDS ORDERED: Pepcid 20 MG VIAL IV ONE ×2 (01:42→02:05)
[2018-02-16] MEDS ORDERED: Zofran 4 MG/2 ML VIAL ONE (02:05)
[2018-02-16 02:33] LABS: BASOPHIL % 0.2 % (0.0-0.4); Basophil (Absolute #) 0.02 (0-0.4); Eosinophil % 0.1 % (0.00-5.0); Eosinophil (Absolute #) 0.01 (0-0.5); Granulocyte Absolute (ANC) 7.02 (1.4-6.9); Granulocytes % 82.4 % (36.0-66.0); Hematocrit 41.6 % (42-50); Hemoglobin 13.5 gm/dl (12.5-18.0); Lymphocytes % 10.6 % (24.0-44.0); Mean Cell Volume 86.1 fl (78-100); Mean Corpuscular Hgb Concent. 32.5 g/dl (32-36); Mean Platelet Volume 10.1 fl (6-9.5); Monocyte (Absolute #) 0.57 (0.0-1.3); Monocytes % 6.7 % (0.0-12.0); Platelet Count 316 K/mm3 (150-450); Red Blood Count 4.83 M/mm3 (4.1-5.6); Red Cell Distribution Width 18.9 % (11.5-14.0); White Blood Count 8.5 K/mm3 (4.0-10.5)
[2018-02-16 02:36] LABS: Lactic Acid 5.2 (0.4-2.0)
[2018-02-16 03:06] LABS: ALBUMIN 3.5 g/dL (3.5-5.0); ANION GAP 16.3 MEQ/L (5-15); BILIRUBIN,TOTAL 1.8 mg/dL (0.2-1.3); Creatinine 1 2.61 mg/dL (0.66-1.25); Potassium 3.3 mmol/L (3.5-5.1); Total Protein 6.6 g/dL (6.3-8.2)
[2018-02-16] MEDS ORDERED: Sodium Chloride 0.9% 1000 ML 1,000 ML IV STA (03:23)
[2018-02-16] MEDS ORDERED: Sodium Chloride 0.9% 1000 ML 1,000 ML ONE (03:34)
[2018-02-16] MEDS ORDERED: MORPHINE SULFATE 4 MG INJ IV ONE (05:04)
[2018-02-16] MEDS ORDERED: MORPHINE SULFATE 4 MG INJ ONE (05:10)
[2018-02-16] MEDS ORDERED: Unasyn 3GM / NaCl 100ML 3 GM/100 ML IVPB IV STA (05:40)
[2018-02-16] MEDS ORDERED: Unasyn 3GM / NaCl 100ML 3 GM/100 ML IVPB ONE (06:13)
[2018-02-16] MEDS: Sodium Chloride 0.9% 1000 ML 1,000 ML IV SCH ×2 (06:16→08:15)
[2018-02-16] MEDS ORDERED: Zofran 4 MG/2 ML VIAL IV PRN (07:49)
[2018-02-16] MEDS ORDERED: MORPHINE SULFATE 4 MG INJ IV PRN (07:49)
[2018-02-16] MEDS ORDERED: TYLENOL 325 MG PO PRN (07:49)
--- NOTE | 2018-02-16 08:17 | PCM.HP ---
History of Present Illness - Chief Complaint Chief Complaint: abdominal pain Date: 02/16/18 History of Present Illness: is a 87 year old male. who was living at assisted living at [facility] and suffers from chronic renal failure suddenly developed severe abdominal pain and nausea and presented to the ED with peritoneal symptoms. He became more lethargic and blood pressure was dropping. He was found to have concern for perforated bowel and surgery was consulted but declined consult due to not being surgical candidate per ER notes. His family was consulted he did not want ICU level care and he did not ever want to have dialysis. The patient was thus admitted for iv antibiotics and fluids and pain control. He currently is drowsy and unable to provide history. The history is obtained from his son and daughter at the bedside. - Review of Systems Constitutional: Other (unable to obtain secondary to mental status) Medications & Allergies Home Medications: Home Medication List Levothyroxine Sodium 75 Mcg [Synthroid 75 Mcg] 75 mcg PO DAILY 06/07/14 [ History Confirmed 02/16/18] Tamsulosin HCl 0.4 mg [Flomax 0.4 MG] 0.4 mg PO DAILY 05/31/15 [History Confirmed 02/16/18] Carvedilol 12.5 mg [Coreg 12.5 mg] 12.5 mg PO BID 02/10/16 [History Confirmed 02/16/18] Aspirin [Aspir-Low] 81 mg PO DAILY 03/08/17 [History Confirmed 02/16/18] HydrALAzine HCL 25 MG TAB [Apresoline 25 MG TABLET] 12.5 mg PO TID #90 tablet 03/12/17 [Rx Confirmed 02/16/18] Acetaminophen 325 mg [Tylenol 325 mg] 650 mg PO Q4HPRN PRN 11/29/17 [ History Confirmed 02/16/18] Fluticasone Propionate [Flonase NASAL] 16 gm NS UD 11/29/17 [History Confirmed 02/16/18] Guaifenesin/Dextromethorphan [Robitussin Cough-Chest Dm Liq] 5 ml PO Q4HPRN PRN 11/29/17 [History Confirmed 02/16/18] Ipratropium/Albuterol Sulfate [Iprat-Albut 0.5-3(2.5) mg/3 ml] 3 ml IH UD [History Confirmed 02/16/18] PANTOPRAZOLE 40 mg Tablet [Protonix 40MG Tablet] 40 mg PO DAILY #30 tab [Rx Confirmed 02/16/18] Sucralfate 1000 mg/10 ml [Carafate SUSPENSION 1000 MG/10 ML] 1,000 mg PO ACHS 7 Days #280 ml 12/01/17 [Rx Confirmed 02/16/18] Allergies/Adverse Reactions: Allergies Allergy/AdvReac Type Severity Reaction Status Date / Time No Known Drug Allergies Allergy Verified 02/16/18 02:23 - Past Medical History Past Medical History: Yes Neurological History: No Pertinent History ENT History: No Pertinent History Cardiac History: Angina, Arrhythmia, Hypertension, Other Respiratory History: CHF, COPD Endocrine Medical History: Hypothyroidism Musculoskelatal History: Arthritis, Fractures GI Medical History: No Pertinent History History: Renal Disease Pyscho-Social History: No Pertinent History Male Reproductive Disorders: Prostate Problems Comment: fractured left arm, fractured fingers ppm 06/2015 for atrial fib leaky valve - Past Surgical History Past Surgical History: Yes Neuro Surgical History: No Pertinent History Cardiac History: Pacemaker, Other Respiratory Surgery: No Pertinent History GI Surgical History: No Pertinent History Genitourinary Surgical Hx: No Pertinent History Musculskeletal Surgical Hx: Orthopedic Surgery Male Surgical History: No Pertinent History Other Surgical History: [place] teeth out, surgery on hand - Social History Smoking Status: Former smoker Exposure to second hand smoke: No Alcohol: None Drug Use: none - Physical Exam Vital Signs: Vital Signs - 24 hr Temp Pulse Resp BP Pulse Ox 02/16/18 07:17 92 L 02/16/18 06:58 62 24 74/46 92 L 02/16/18 06:00 82 32 H 82/49 92 L 02/16/18 05:00 74 28 H 76/40 90 L 02/16/18 04:00 74 28 H 82/42 91 L 02/16/18 03:04 72 32 H 94/48 96 02/16/18 02:14 78 30 H 107/47 92 L 02/16/18 01:32 99.2 F 66 28 H 104/53 93 L Oxygen-Last 24 hours O2 Percentage 35% O2 Percentage 35% O2 Percentage 35% O2 Percentage 35% O2 Percentage 5 Liters = 40% O2 Percentage 5 Liters = 40% O2 Percentage 5 Liters = 40% General Appearance: moderate distress Neurologic Exam: other (opens eyes and tracks mumbling incomprehensible words) Ears, Nose, Throat Exam: dry mucous membranes Neck Exam: non-tender, supple Respiratory Exam: crackles/rales (bibasilar) Cardiovascular Exam: regular rate/rhythm, murmur, edema (3+ pitting edema melani LE ) Gastrointestinal/Abdomen Exam: tenderness, distention, guarding, rebound, No normal bowel sounds (hypoactive bowel sounds) Extremity Exam: pedal edema Skin Exam: warm, dry Results - Labs Lab/Micro Results: Lab Results-Last 24 Hours 02/16/18 02/16/18 02/16/18 Range/Units 02:30 02:31 02:31 WBC 8.5 (4.0-10.5) K/mm3 RBC 4.83 (4.1-5.6) M/mm3 Hgb 13.5 (12.5-18.0) gm/dl Hct 41.6 L (42-50) % MCV 86.1 (78-100) fl MCH 28.0 (26-32) pg MCHC 32.5 (32-36) g/dl RDW 18.9 H (11.5-14.0) % Plt Count 316 (150-450) K/mm3 MPV 10.1 H (6-9.5) fl Gran % 82.4 H (36.0-66.0) % Eos # (Auto) 0.01 (0-0.5) Absolute Lymphs (auto) 0.90 L (1.0-4.6) Absolute Monos (auto) 0.57 (0.0-1.3) Lymphocytes % 10.6 L (24.0-44.0) % Monocytes % 6.7 (0.0-12.0) % Eosinophils % 0.1 (0.00-5.0) % Basophils % 0.2 (0.0-0.4) % Absolute Granulocytes 7.02 H (1.4-6.9) Basophils # 0.02 (0-0.4) Sodium 135 L (137-145) mmol/L Potassium 3.3 L (3.5-5.1) mmol/L Chloride 91 L (98-107) mmol/L Carbon Dioxide 31 H (22-30) mmol/L Anion Gap 16.3 H (5-15) MEQ/L BUN 82 H (9-20) mg/dL Creatinine 2.61 H (0.66-1.25) mg/dL Estimated GFR 24.8 ML/MIN Glucose 142 H (74-106) mg/dL Lactic Acid 5.2 H (0.4-2.0) Calcium 9.0 (8.4-10.2) mg/dL Total Bilirubin 1.80 H (0.2-1.3) mg/dL AST 19 (17-59) U/L ALT 17 (0-50) U/L Alkaline Phosphatase 102 (38-126) U/L Troponin I (0.000-0.034) ng/mL Serum Total Protein 6.6 (6.3-8.2) g/dL Albumin 3.5 (3.5-5.0) g/dL Amylase 82 (30-110) U/L Lipase 199 (23-300) U/L 02/16/18 02/16/18 02/16/18 Range/Units 02:31 04:48 05:20 WBC (4.0-10.5) K/mm3 RBC (4.1-5.6) M/mm3 Hgb (12.5-18.0) gm/dl Hct (42-50) % MCV (78-100) fl MCH (26-32) pg MCHC (32-36) g/dl RDW (11.5-14.0) % Plt Count (150-450) K/mm3 MPV (6-9.5) fl Gran % (36.0-66.0) % Eos # (Auto) (0-0.5) Absolute Lymphs (auto) (1.0-4.6) Absolute Monos (auto) (0.0-1.3) Lymphocytes % (24.0-44.0) % Monocytes % (0.0-12.0) % Eosinophils % (0.00-5.0) % Basophils % (0.0-0.4) % Absolute Granulocytes (1.4-6.9) Basophils # (0-0.4) Sodium (137-145) mmol/L Potassium (3.5-5.1) mmol/L Chloride (98-107) mmol/L Carbon Dioxide (22-30) mmol/L Anion Gap (5-15) MEQ/L BUN (9-20) mg/dL Creatinine (0.66-1.25) mg/dL Estimated GFR ML/MIN Glucose (74-106) mg/dL Lactic Acid 6.0 H (0.4-2.0) Calcium (8.4-10.2) mg/dL Total Bilirubin (0.2-1.3) mg/dL AST (17-59) U/L ALT (0-50) U/L Alkaline Phosphatase (38-126) U/L Troponin I 0.064 H* 0.066 H* (0.000-0.034) ng/mL Serum Total Protein (6.3-8.2) g/dL Albumin (3.5-5.0) g/dL Amylase (30-110) U/L Lipase (23-300) U/L - Radiology Impressions Radiology Exams & Impressions: Radiology Procedures Category Date Time Status ABDOMEN AND PELVIS W/0 CONTRAS [CT] Stat Exams 02/16/18 01:43 Taken - Other Procedures and Tests Respiratory Therapy 02/16/18 07:49 Oxygen OXYMASK-LPM 10% Respiratory Therapy Consult ROUTINE Assessment/Plan (1) Severe sepsis Current Visit: Yes Status: Acute Assessment & Plan: The patient received unasyn in the ed will change to zosyn for better coverage and add flagyl in the case it was c. diff but seems less likely with no hx of diarrhea and abrupt onset he is getting only his second bolus it appears now after arrival to floor just prior to my assessment. he has warm swollen extremities will place Griffin for I/O monitor give additional iv fluid bolus to improve bp that is remaining low lactic acid is increasing. blood cultures pending discussion with his poa son and daughter at bedside and confirmed he does not want icu level care or pressers and that he does not want dialysis we discussed the very poor prognosis and availability to switch to comfort measures at any point should he continue to deteriorate and experience more pain. for now will continue with initial resuscitation effort without pressers or invasive ventilation. He has very poor prognosis with his renal failure and baseline poor oxygenation on 5L of nasal cannule oxygen. He is very likely to this morning we discussed as his labs and vitals look worse now on his arrival to the floor then they were on his arrival to the ED. Code(s): A41.9 - SEPSIS, UNSPECIFIED ORGANISM; R65.20 - SEVERE SEPSIS WITHOUT SEPTIC SHOCK (2) Colitis Current Visit: Yes Status: Acute Code(s): K52.9 - NONINFECTIVE GASTROENTERITIS AND COLITIS, UNSPECIFIED (3) Acute and chronic respiratory failure Current Visit: Yes Status: Acute Qualifiers: Respiratory failure complication: hypoxia Qualified Code(s): J96.21 - Acute and chronic respiratory failure with hypoxia Assessment & Plan: on 5L NC at baseline currently using venti mask with inermittent desaturations Code(s): J96.20 - ACUTE AND CHR RESP FAILURE, UNSP W HYPOXIA OR HYPERCAPNIA (4) Acute worsening of stage 4 chronic kidney disease Current Visit: Yes Status: Acute Assessment & Plan: he has wishes to not receive dialysis treatment well documented in the past and consistent with his current family wishes Code(s): N28.9 - DISORDER OF KIDNEY AND URETER, UNSPECIFIED; N18.4 - CHRONIC KIDNEY DISEASE, STAGE 4 (SEVERE) (5) CHF (congestive heart failure), NYHA class III Current Visit: Yes Status: Acute Qualifiers: Congestive heart failure type: systolic Congestive heart failure chronicity : chronic Qualified Code(s): I50.22 - Chronic systolic (congestive) heart failure Code(s): I50.9 - HEART FAILURE, UNSPECIFIED
[2018-02-16] MEDS: Lactated Ringers 1,000 ML IV SCH ×2 (09:31→15:07)
[2018-02-16] MEDS: FLAGYL 500 MG IVPB 500 MG/100 ML BAG IV SCH ×2 (09:31→16:47)
[2018-02-16 10:29] LABS: Appearance CLEAR (CLEAR); Glucose NEGATIVE (NEGATIVE); Ketones NEGATIVE (NEGATIVE); Leukocyte Esterase TRACE (NEGATIVE); Nitrite NEGATIVE (NEGATIVE); Protein,Urine Dip NEGATIVE (Negative)
[2018-02-16 10:30] LABS: Bilirubin SMALL (NEGATIVE); Blood 250 Ery/ul (0-5); Epithelial Cells RARE /HPF (FEW); Urobilinogen NORMAL mg/dL (0-1); WBC 0-2 /HPF (0-5)
[2018-02-16 10:31] LABS: Bacteria RARE /HPF (NEGATIVE)
--- NOTE | 2018-02-16 10:37 | XRAY ---
Indication: Abdominal pain. Multiple contiguous axial images obtained through the abdomen and pelvis without contrast as ordered. Comparison: April 17, 2017. Lung bases demonstrates worsening moderate right effusion with right lower lobe compressive atelectasis. Mild left base atelectasis/scarring without large effusion. Stable tiny right base calcified granuloma. Heart remains borderline enlarged with pacer lead. New 4.5 cm round right paraesophageal lesion with both intraluminal air, fluid, and fat. Again small hiatal hernia. Noncontrasted stomach and bowel loops appear nonobstructed. The colon now appears mild/mildly distended with new mild diffuse bowel wall thickening, mild stranding, and tiny pneumatosis in the left hemicolon. Findings either diffuse colitis versus ischemia. No portal venous air. New small perforation in the distal descending colon with tiny free air throughout the abdomen. Also new free fluid throughout the abdomen and pelvis. No walled off fluid collection. Again scattered hepatic/splenic calcified granulomas, bilateral renal atrophy, and enlarged prostate gland. Remaining liver, gallbladder, pancreas, spleen, adrenal glands, kidneys, ureters, and bladder appear unremarkable for noncontrast exam. 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 Osseous structures intact again with moderate degenerative spondylosis throughout the spine and degenerative changes of both hips. Again small right inguinal hernia now fat/fluid filled. Impression: 1. New diffuse distended colon with now bowel wall thickening, stranding, and pneumatosis. Rule out diffuse colitis versus ischemia. There is perforation of the distal descending colon with intra-abdominal/pelvis free fluid and free air. 2. New round right paraesophageal air/fluid/fat density that may be sequela to the colonic perforation. 3. Stable small right inguinal hernia now fat/fluid filled. Stable small hiatal hernia. 4. Increasing moderate right lung base pleural effusion with compressive atelectasis. 5. Stable borderline cardiomegaly, bilateral renal atrophy, enlarged prostate gland, distal AAA, and evidence for old granulomatous disease. Comment: Preliminary interpretation was made by [facility]. No critical discrepancy. CTDI 23.61
[2018-02-16] MEDS ORDERED: Unasyn 3GM / NaCl 100ML 3 GM/100 ML IVPB IV SCH (12:00)
[2018-02-16] MEDS ORDERED: Lactated Ringers 1,000 ML IV ONE ×2 (12:06→13:50)
[2018-02-16] MEDS: Zosyn 2.25 GM 2.25 GM in D5w 100ML Mini Bag 100 ML 100 ML IV SCH ×2 (13:24→16:48)
[2018-02-16] MEDS ORDERED: Ativan 2 MG/1 ML VIAL IV PRN (13:37)
[2018-02-16 13:53] VITALS: PULSE 52
[2018-02-16 14:41] VITALS: BP 78/40
[2018-02-16] MEDS: MORPHINE SULFATE 4 MG INJ IV PRN ×2 (16:15→17:49)
[2018-02-16 16:49] VITALS: O2SAT 90
--- NOTE | 2018-02-17 17:37 | PCM.DS ---
Discharge Summary Date of Admission: 02/16/18 07:38 Date of Discharge: 02/16/2018 Admitting Physician: ALEJANDRO MARTIN Primary Care Provider: CRISTI LOERA Allergies Allergies No Known Drug Allergies Allergy (Verified 02/16/18 02:23) Hospital Summary - Hospital Course Hospital Course: Mr. Mathew resides at assisted living where he was being treated by nephrology for severe ckd stage 4 with difficulty with fluid overload as well as chronic respiratory failure on 5L nc O2 at baseline due to chronic copd and chronic systolic heart failure with last LVEF of 37%. He had sudden onset of nausea and abdominal pain and EMS was called. He arrived in ED and was found to have a perforated colon, colitis, peritonitis and was in severe sepsis. Surgery was consulted by ED but declined due to his comorbid conditions making him not a surgical candidate. He received unasyn in the ED and 1L of fluid and was transferred to the floor. On arrival his lactic acid had risen to 6 he was in pain in the abdomen with rebound tenderness. He was on venti mask for oxygenation. His blood pressure was 70/30 and he had a paced rhythm in the 60' s. He was given additional fluid boluses of LR and antibiotics were changed to zosyn and flagyl. His son and daughter his POAs were consulted on arrival at the bedside to confirm his wishes to not pursue aggressive interventions such as surgery, to avoid icu care with medications such as pressors and with his chronic kidney disease he did not want to ever be placed on dialysis. He had a very poor prognosis with the extent of the perforation and peritonitis and sepsis with his poor baseline status survival until discharge after a surgery was unlikely and removal from a vent if he survived a surgery was also highly unlikely. He was given morphine for his pain and repeated fluid bolus for his low blood pressure and hamilton for output which was minimal. He showed little improvement over the day and his pain was well controlled on the morphine. The blood pressure was worsening and he was beginning to experience more pain around 16:00 and the family was consulted again and elected to pursue comfort measures. The antibiotics were stopped and fluids were stopped and he appeared in no discomfort and he at 19:35 with his family at his bedside. - Vitals & Intake/Output Vital Signs: Vital Signs Temperature 97.7 F 02/16/18 12:00 Pulse Rate 52 L 02/16/18 12:00 Respiratory Rate 26 H 02/16/18 12:00 Blood Pressure 78/40 02/16/18 13:00 O2 Sat by Pulse Oximetry 90 L 02/16/18 16:48 Oxygen-Last Documented O2 Percentage 5 Liters = 40% Intake & Output: Intake & Output 02/15/18 02/16/18 02/17/18 02/18/18 11:59 11:59 11:59 11:59 Intake Total 4030 Output Total 250 20 Balance -250 4010 Weight 90.9 kg - Lab Result Diagrams: 02/16/18 02:31 02/16/18 02:31 Micro Results-Entire Visit: Microbiology 02/16/18 05:50 Blood Culture - Preliminary Blood NO GROWTH TO DATE 02/16/18 09:30 Urine Culture - Preliminary Catherized NO GROWTH TO DATE - Radiology Exams Ordered Rad Exams-Entire Visit: Radiology Procedures Category Date Time Status ABDOMEN AND PELVIS W/0 CONTRAS [CT] Stat Exams 02/16/18 01:43 Completed - Procedures and Test Procedures and Tests throughout Hospitalization: Therapy Orders & Screens 02/16/18 07:49 Oxygen OXYMASK-LPM 10% Comment: Respiratory Therapy Consult ROUTINE Comment: Reason For Exam: 02/16/18 08:27 Respiratory Therapy Assessment DAILY Comment: Diagnosis: abdominal pain Final Diagnosis/Problem List - Final Discharge Diagnosis/Problem (1) Perforated intestine Status: Acute (2) Severe sepsis Status: Acute Onset Date: ~02/16/18 (3) Colitis Status: Acute Onset Date: ~02/16/18 (4) Acute and chronic respiratory failure Status: Acute Onset Date: ~02/16/18 (5) Acute worsening of stage 4 chronic kidney disease Status: Acute Onset Date: ~02/16/18 (6) CHF (congestive heart failure), NYHA class III Status: Acute Onset Date: ~02/16/18 - Discharge Discharge Date: 02/16/18 Disposition: Condition: Prescriptions: No Action Levothyroxine Sodium 75 Mcg [Synthroid 75 Mcg] 75 mcg PO DAILY Tamsulosin HCl 0.4 mg [Flomax 0.4 MG] 0.4 mg PO DAILY Carvedilol 12.5 mg [Coreg 12.5 mg] 12.5 mg PO BID Aspirin [Aspir-Low] 81 mg PO DAILY HydrALAzine HCL 25 MG TAB [Apresoline 25 MG TABLET] 12.5 mg PO TID #90 tablet Ipratropium/Albuterol Sulfate [Iprat-Albut 0.5-3(2.5) mg/3 ml] 3 ml IH UD Fluticasone Propionate [Flonase NASAL] 16 gm NS UD Acetaminophen 325 mg [Tylenol 325 mg] 650 mg PO Q4HPRN PRN PRN Reason: pain or temp Guaifenesin/Dextromethorphan [Robitussin Cough-Chest Dm Liq] 5 ml PO Q4HPRN PRN PRN Reason: Cough Sucralfate 1000 mg/10 ml [Carafate SUSPENSION 1000 MG/10 ML] 1,000 mg PO ACHS 7 Days #280 ml PANTOPRAZOLE 40 mg Tablet [Protonix 40MG Tablet] 40 mg PO DAILY #30 tab
== END 2018-02-16 23:15 | disposition expired | DRG 393 ==
LOC: ED 01:23 → MED SURG 07:38
PROVIDERS: ADMIT Internal Medicine; ATTEND Family Medicine
DX: K63.1 Perforation of intestine (nontraumatic) (principal); R65.20 Severe sepsis without septic shock; J96.20 Acute and chronic respiratory failure, unspecified whether with hypoxia or hypercapnia; N18.4 Chronic kidney disease, stage 4 (severe); I50.22 Chronic systolic (congestive) heart failure; K52.9 Noninfective gastroenteritis and colitis, unspecified; A41.9 Sepsis, unspecified organism; I12.9 Hypertensive chronic kidney disease with stage 1 through stage 4 chronic kidney disease, or unspecified chronic kidney disease; I10 Essential (primary) hypertension; I50.9 Heart failure, unspecified; J44.9 Chronic obstructive pulmonary disease, unspecified; E03.9 Hypothyroidism, unspecified; M19.90 Unspecified osteoarthritis, unspecified site; N28.9 Disorder of kidney and ureter, unspecified; I38 Endocarditis, valve unspecified; R10.9 Unspecified abdominal pain; Z95.0 Presence of cardiac pacemaker; Z79.899 Other long term (current) drug therapy
CPT/HCPCS: 36000; 36415; 74176; 80053; 81000; 82150; 83605; 83690; 84484; 85025; 87040; 87086; 93005; 93041; 94760; 96360; 96361; 96365; 96374; 96375; 99285; J0295; J2270; J2405; J2543